=== PATIENT | male | born 1950 | race Caucasian/White ===

== ENCOUNTER 2019-05-28 10:13 | Outpatient (CLI) | payer MEDICARE, BC, SELFPAY ==
--- NOTE | ~2019-05-28 | CT_ITS ---
EXAMINATION: CT chest wo con DATE: 05/28/2019 10:41 INDICATION: Shortness of breath, cough and chronic asbestos exposure. TECHNIQUE: Computed tomography (CT) of the chest was performed without intravenous contrast. The dose -length product was 830.94 mGy-cm. Automated exposure control and iterative reconstruction technique were employed. COMPARISON: CT dated 02/05/2017 FINDINGS: There is extensive right pleural thickening with pleural calcifications, consistent with pr evious asbestos exposure. No significant pleural or pericardial effusion. Heart size normal. No thora cic lymphadenopathy. There is right thoracic volume loss. There are gallstones. Calcified granulomas in the spleen. There is chronic right upper and middle lobe airspace consolidation. No osteolytic or osteoblastic le sions are identified to suggest fracture. There is thoracic spondylosis. IMPRESSION: 1. Extensive right pleural thickening with pleural calcifications, consistent with prior asbestos exp osure. There is chronic right thoracic volume loss. 2: Chronic right upper and middle lobe airspace disease which may represent atelectasis/scarring or l ess likely atypical infection. 3: Cholelithiasis. Reviewed, dictated and finalized at location B. 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 Extensive right pleural thickening with pleural calcifications, consistent w ith prior asbestos exposure. There is chronic right thoracic volume loss. 2: Chronic right upper and middle lobe airspace disease which may represent ate lectasis/scarring or less likely atypical infection. 3: Cholelithiasis.
== END 2019-05-28 10:14 | disposition home or self-care (01) ==
PROVIDERS: PCP Family Medicine; Visit Provider Nurse Practitioner Family
DX: R05 Cough (principal); R06.02 Shortness of breath; K80.20 Calculus of gallbladder without cholecystitis without obstruction; R91.8 Other nonspecific abnormal finding of lung field
CPT/HCPCS: 71250

== ENCOUNTER 2020-04-11 13:41 | Outpatient (CLI) | payer MEDICARE, BC, SELFPAY ==
--- NOTE | 2020-04-11 13:51 | ECHO_ITS ---
Patient Info Name: Hemal Ying Age: 70 years : 1950 Gender: Male Ht: 71 in Wt: 285 lbs BSA: 2.60 m2 HR: 81 bpm BP: 160 / 95 mmHg Technical Quality: Poor Exam Date: 04/11/2020 2:23 PM Exam Location: [facility] Patient Status: Outpatient Admit Date: 04/11/2020 Staff Ordering Physician: Toby Zhong MD Cupola Melter Helper: Samir Carter, MICKICS, RT Attending Provider: Toby Zhong MD Referring Physician: Farheen DOMINGUEZ; Exam Type: CA echo dop color flow w con Study Info Indications I51.7 - Cardiomegaly Complete two-dimensional, color flow and Doppler transthoracic echocardiogram is performed with contrast to opacify the left ventricle and to improve the deliniation of the left ventricle endocardial borders. Contrast/Agitated Saline Contrast/Ag. Saline: Definity Amount: 3.00 ml New IV Access: Antecubital Space and Right Site Condition: No extravasation and IV removed Reason for Poor Study: poor echocardiographic windows Summary 1. Technically suboptimal study due to poor sonographic images. 2. Definity contrast administered improved wall motion interpretation. 3. Left ventricular chamber dimension is normal. 4. Left ventricular systolic function is normal, estimated at 55-60%. 5. The left ventricular diastolic function is grade I diastolic dysfunction. 6. E/e' 9 is minimally elevated. Left Ventricle Technically suboptimal study due to poor sonographic images. E/e' 9 is minimally elevated. Definity contrast administered improved wall motion interpretation. Left ventricular chamber dimension is normal. Left ventricular systolic function is normal, estimated at 55-60%. The left ventricular diastolic function is grade I diastolic dysfunction. Right Ventricle Right ventricular chamber dimension is not well visualized. Left Atria Left atrial chamber dimension is normal. Right Atria Right atrial chamber dimension is not well visualized. Aortic Valve The aortic valve is not well visualized. There is no aortic valve stenosis. There is no aortic valve regurgitation. Pulmonic Valve The pulmonic valve is not well visualized. Mitral Valve There is no mitral valve stenosis. There is no mitral valve regurgitation. Tricuspid Valve The tricuspid valve leaflets are not well visualized. There is no tricuspid valve regurgitation. Pericardium/Pleural There is no pericardial effusion. Inferior Vena Cava Normal inferior vena cava with >50% collapse upon inspiration consistent with normal right atrial pressure, 5 mmHg. Aorta The aortic root size at the sinus of Valsalva is normal. Left Ventricular Outflow Tract Name Value Normal LVOT Doppler LVOT Peak Gradient 4 mmHg LVOT Mean Gradient 2 mmHg LVOT VTI 20.66 cm LVOT VTI/AV VTI Ratio 0.61 Mitral Valve Name Value Normal MV Doppler
== END 2020-04-11 13:42 | disposition home or self-care (01) ==
PROVIDERS: PCP Family Medicine; Visit Provider Family Medicine
DX: G47.33 Obstructive sleep apnea (adult) (pediatric) (principal); I26.09 Other pulmonary embolism with acute cor pulmonale; I51.7 Cardiomegaly
CPT/HCPCS: C8929

== ENCOUNTER 2020-05-24 13:37 | Outpatient (CLI) | payer MEDICARE, BC, SELFPAY ==
--- NOTE | ~2020-05-24 | CT_ITS ---
EXAMINATION: CT diagnostic chest wo con DATE: 05/24/2020 14:06 INDICATION: Z77.090 - Contact with and (suspected) exposure to asbestos TECHNIQUE: Computed tomography (CT) of the chest was performed without intravenous contrast. Addition al 3D reconstructions utilizing coronal maximum intensity projection (MIP) were performed. Automated exposure control and iterative reconstruction technique were employed. The dose-length product was 76 2.39 mGy-cm. COMPARISON: 05/28/2019 FINDINGS: Bilateral calcified pleural plaques with right-sided and lower lung predominance consistent with prov ided history of prior asbestos exposure. Chronic partial collapse of the right middle lobe with assoc iated bronchiectatic changes. No significant interval change in chronic groundglass, reticular and tr ee-in-bud opacities throughout portions of the right upper and to a lesser degree lower lobes. A few small calcified nodules in the right upper lobe along, spleen and liver with calcified right hilar an d mediastinal lymph nodes consistent with old granulomatous disease. No pulmonary edema, pleural effu shelley or pneumothorax. Heart size is normal. No pericardial effusion. Atherosclerotic coronary artery calcifications. 4.4 cm ascending thoracic aortic aneurysm. No pathologically enlarged thoracic lympha denopathy. There are bridging osteophytes extending from the lower cervical through the upper lumbar spine consistent with diffuse idiopathic skeletal hyperostosis (DISH). IMPRESSION: 1. Bilateral calcified pleural plaques, right greater than left consistent with prior asbestos exposu re. 2. Chronic partial collapse of the right middle lobe and relatively stable appearance of chronic reti cular nodular lung disease in the right upper and lower lobes which is likely sequela of chronic infe ction. 3. 4.4 cm fusiform ascending thoracic aortic aneurysm. Reviewed, dictated and finalized at location B. MIXER IMPRESSION: 1. Bilateral calcified pleural plaques, right greater than left consistent with prior asbestos exposure. 2. Chronic partial collapse of the right middle lobe and relatively stable appe arance of chronic reticular nodular lung disease in the right upper and lower l obes which is likely sequela of chronic infection. 3. 4.4 cm fusiform ascending thoracic aortic aneurysm.
== END 2020-05-24 13:38 | disposition home or self-care (01) ==
PROVIDERS: PCP Family Medicine; Visit Provider Nurse Practitioner Family
DX: J44.9 Chronic obstructive pulmonary disease, unspecified (principal); R06.02 Shortness of breath; Z77.090 Contact with and (suspected) exposure to asbestos; I71.4 Abdominal aortic aneurysm, without rupture
CPT/HCPCS: 71250

== ENCOUNTER 2020-05-26 14:25 | Outpatient (CLI) | payer MEDICARE, BC, SELFPAY ==
--- NOTE | 2020-05-27 09:19 | P.PCNPFT_ITS ---
PFT Interpretation This is a pulmonary function test with pre and post-bronchodilator spirometry, plethysmography and diffusing capacity. The test was performed and results interpreted in accordance with the 2019 and 2005 ATS/ERS Task Force guidelines respectively using the Global Lung Function Initiative-2012 reference equations. Patient demonstrated good effort and c ooperation. Reproducibility criteria were met. The quality of the pre bronchodilator spirometry maneuver was Grade A and post bronchodilator spirometry maneuver was Grade A. Findings: Spirometry: There is decreased maximal expiratory airflow at all lung volumes with a concave expiratory flow tracing. The pre bronchodilator FVC is 2.88 L, 65% predicted. The pre bronchodilator FEV1 is 1.75 L, 52% predicted. The FEV1: FVC ratio 61%. The post bronchodilator FVC is 3.06 L, representing a 6% increase. The post bronchodilator FEV1 is 1.89 L, representing 8% increase. Plethysmography: The total lung capacity is 5.15 L, 71% predicted. The functional residual capacity is 2.75 L, 72% predicted. The residual volume is 2.23 L, 90% predicted. Diffusing capacity: The absolute diffusion capacity is 21.3, 79% predicted. The diffusing capacity corrected for alveolar volume is 4.93, 126% predicted. In comparison to the most review is pulmonary function test in our laboratory on 07/03/2016 demonstrates that there is a decrease in post bronchodilator FVC from 3.48 to 3.06. The post bronchodilator FEV1 has decreased from 2.34 to 1.89. The total lung capacity has decreased from 7.01 to 5.15. The functional residual capacity has decreased from 4.50 to 2.75. The residual volume has decreased from 3.78 to 2.23. The absolute diffusion capacity is decreased from 25.6 to 21.3. The diffusing capacity corrected for alveolar volume has decreased from 5.48 to 4.95. Impression: There is a combined obstructive and restrictive ventilatory abnormality. There are no guidelines to assign the severity of obstruction and restriction with a combined abnormality. In my opinion, given the moderately concave expiratory flow tracing with a moderately decreased FEV1:FVC ratio and mild restrictive abnormality I would state there is a moderate obstructive abnormality and a mild restrictive abnormality resulting in a moderately severe decreased FEV1. There is no significant improvement after inhaling a single dose of albuterol. The diffusing capacity is normal. When compared to previous pulmonary function test on 07/03/2016 there is a greater than anticipated time dependent decrease in FVC, FEV1, total lung capacity, functional residual capacity, residual volume and DLCO. Clinical correlation is recommended.
--- NOTE | 2020-05-27 09:31 | WPDSIXMINUTE ---
Six Minute Walk This is a 6 minutes walk test. The test was performed and interpreted in accordance with the 2014 ERS/ATS task force guidelines. Findings: The patient's resting room air oxygen saturation measured by pulse oximetry was 94% and her heart rate was 61 bpm. Patient ambulated for 305 meters and oxygen saturation remained 91 to 95%. Heart rate at the end of the study was 103 bpm. There are no prior studies for comparison.
== END 2020-05-26 14:26 | disposition home or self-care (01) ==
LOC: ANHPFT 14:27
PROVIDERS: PCP Family Medicine; Visit Provider Nurse Practitioner Family
DX: J44.9 Chronic obstructive pulmonary disease, unspecified (principal); Z77.090 Contact with and (suspected) exposure to asbestos; R94.2 Abnormal results of pulmonary function studies
CPT/HCPCS: 94060; 94726; 94729

== ENCOUNTER 2020-12-01 17:06 | Emergency (ER) | payer MEDICARE, BC, SELFPAY ==
--- NOTE | ~2020-12-01 | XR_ITS ---
XR hand RT min 3V, XR wrist RT min 3V 12/01/2020 17:32 Indication: Right wrist and hand pain after blunt trauma Procedure: 3 views right hand 4 views right wrist Comparison: No prior studies for comparison. Findings: No fracture, subluxation or dislocation. Moderate dorsal soft tissue swelling of the hand a nd wrist. Polyarticular osteoarthritis. Impression: 1: No acute fracture. Reviewed, dictated and finalized at location A. Impression: 1: No acute fracture. Impression: 1: No acute fracture.
[2020-12-01 17:14] VITALS: BP 177/79; PULSE 81; RESP 16; TEMP 36.8; O2SAT 97
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
--- NOTE | 2020-12-01 17:33 | PC.NURSE ---
PT DECLINED ICE FOR COMFORT
== END 2020-12-01 17:45 | disposition home or self-care (01) ==
PROVIDERS: Emergency Provider Nurse Practitioner Family; PCP Family Medicine
DX: S60.221A Contusion of right hand, initial encounter (principal); S60.211A Contusion of right wrist, initial encounter; W27.8XXA Contact with other nonpowered hand tool, initial encounter; Z86.73 Personal history of transient ischemic attack (TIA), and cerebral infarction without residual deficits; M06.9 Rheumatoid arthritis, unspecified
CPT/HCPCS: 73110; 73130; 99213; G0463

== ENCOUNTER 2021-08-22 14:50 | Outpatient (CLI) | payer MEDICARE, BC, SELFPAY ==
--- NOTE | 2021-08-22 17:48 | WPDPFTINT ---
PFT Procedure Performed PFT Procedure Performed Spirometry with Pre/Post Bronchodilator Plethysmography (Lung Vol) Diffusing Cap (DLCO) Flow Vol Loop PFT Interpretation This is a pulmonary function test with pre and post-bronchodilator spirometry, plethysmography and diffusing capacity. The test was performed and results interpreted in accordance with the 2019 and 2005 ATS/ERS Task Force guidelines respectively using the Global Lung Function Initiative-2012 reference equations. Patient demonstrated good effort and cooperation. Reproducibility criteria were met. The quality of the pre bronchodilator spirometry maneuver was Grade A and post bronchodilator spirometry maneuver was Grade A. Findings: Spirometry: There is decreased maximal expiratory airflow at low lung volumes with a concave expiratory flow tracing. Contour the inspiratory flow tracing is normal. The pre bronchodilator FVC is 3.28 L, 75% predicted. The pre bronchodilator FEV1 is 2.14 L, 65% predicted. The pre bronchodilator FEV1: FVC ratio is 65%. The post bronchodilator FVC is 3.34 L, representing a 2% increase. The post bronchodilator FEV1 is 2.21 L, representing a 3% increase. The post bronchodilator FEV1: FVC ratio 66%. Plethysmography: The total lung capacity is 7.87 L, 109% predicted. The functional residual capacity is 5.80 L, 151% predicted. The residual volume is 4.36 L, 175% predicted. Diffusing capacity: The diffusing capacity unadjusted for hemoglobin and carboxyhemoglobin is 21.2, 80% predicted. The diffusing capacity adjusted for alveolar volume is 4.42, 114% predicted. Impression: There is a moderate obstructive abnormality without significant improvement after inhaling a single dose of albuterol. The increase in residual volume is consistent with air trapping from an obstructive abnormality. Hyperinflation is present is demonstrated by the increase in functional residual capacity and is consistent with an obstructive abnormality. The diffusing capacity is normal. There are no prior studies for comparison
== END 2021-08-22 14:51 | disposition home or self-care (01) ==
LOC: ANHPFT 15:00
PROVIDERS: PCP Family Medicine; Visit Provider Internal Medicine Critical Care Medicine
DX: J44.9 Chronic obstructive pulmonary disease, unspecified (principal); R94.2 Abnormal results of pulmonary function studies
CPT/HCPCS: 94060; 94726; 94729

== ENCOUNTER 2021-10-24 13:51 | Outpatient (RCR) | payer MEDICARE, BC, SELFPAY ==
[2021-10-24 14:36] VITALS: BP 150/66; PULSE 92; RESP 20; TEMP 36.9; O2SAT 98
[2021-10-24] MEDS: diphenhydrAMINE HCl CAP 25 MG CAPSULE PO (14:40)
[2021-10-24] MEDS: ACETAMINOPHEN 325 MG TABLET 650 MG PO (14:40)
[2021-10-24] MEDS: FAMOTIDINE 20 MG TABLET PO (14:40)
[2021-10-24] MEDS: BEBTELOVIMAB 175 MG/2 ML VIAL IV PUSH (15:03)
[2021-10-24 15:41] VITALS: BP 136/62; PULSE 74; O2SAT 98
== END 2021-10-24 16:00 ==
LOC: AMCINF 13:51
PROVIDERS: PCP Family Medicine; Visit Provider Internal Medicine Hematology & Oncology
DX: U07.1 COVID-19 (principal); I10 Essential (primary) hypertension; I25.10 Atherosclerotic heart disease of native coronary artery without angina pectoris; J44.9 Chronic obstructive pulmonary disease, unspecified; D84.9 Immunodeficiency, unspecified
CPT/HCPCS: A9270; M0222; Q0222

== ENCOUNTER 2021-12-21 09:04 | Emergency (ER) | payer MEDICARE, BC, SELFPAY ==
[2021-12-21 09:10] VITALS: BP 154/79; PULSE 67; RESP 16; TEMP 36.4; O2SAT 98
--- NOTE | 2021-12-21 09:12 | ED.SKABFB ---
HPI - Skin/Abscess/Foreign Bdy General Chief complaint: Skin/Abscess/Foreign Body Stated complaint: right elbow wound from IV Time Seen by Provider: 12/21/21 09:15 Source: patient Mode of arrival: ambulatory Limitations: no limitations History of Present Illness HPI narrative: 71-year-old male presented for complaint of wound to the right medial elbow worsening over the last 10 days, stating this is the site where IV contrast infiltrated during a CT scan at [facility] on 12/11. CT needed to check liver. States the staff removed the IV site after infiltration and applied warm compress. Endorses a blister appeared on the skin when returned home, blister popped and they have applied vaseline and polysporin, and peroxide. States it is red, warm, tender, pain 6/10, worse when it is 'dry.' Denies fatigue, n/v/d/f/c. Hx RA, HTN, copd/asbestosis, PE Related Data Home Medications Medication Instructions Recorded Confirmed coQ10 (ubiquinol) 200 mg capsule 200 mg PO BID 03/30/19 10/24/21 triamcinolone acetonide 0.1 % 0.1 % topical DAILY PRN Rash 03/30/19 10/24/21 topical ointment aspirin 81 mg tablet,delayed 81 mg PO DAILY 06/01/20 10/24/21 release (Adult Aspirin Regimen) methotrexate sodium 2.5 mg tablet 20 mg PO WEEKLY 03/19/21 10/24/21 pitavastatin calcium 4 mg tablet 4 mg PO HS 03/19/21 10/24/21 (Livalo) Allergies Allergy/AdvReac Type Severity Reaction Status Date / Time codeine Allergy Unknown head aches. Verified 12/21/21 09:17 fluoxetine Allergy Unknown Dizziness. Verified 12/21/21 09:17 Review of Systems Review of Systems: CONSTITUTIONAL: Denies body aches, fever, chills, or sweats. EYES: Denies visual changes, redness, or discharge. ENT: Denies rhinorrhea, congestion CARDIOVASCULAR: Denies chest pain, palpitations, or edema. RESPIRATORY: Denies cough or dyspnea. GASTROINTESTINAL: Denies abdominal pain, nausea, vomiting, or diarrhea. SKIN: reports wound and redness right AC MUSCULOSKELETAL: Denies back pain, joint pain, or myalgia. NEUROLOGIC: Denies headache, numbness, tingling, or weakness. [facility] Past Medical History Medical History Dyspnea and respiratory abnormalities History of stroke Prurigo nodularis Rheumatoid arthritis Thoracic aortic aneurysm 4.4 cm ascending Surgical History Surgical History History of carpal tunnel release of both wrists History of tonsillectomy Family History Family History Father Hypertension Family history of cardiovascular disease Family history of chronic obstructive pulmonary disease Family history of congestive heart failure Family history of elevated blood lipids Acute myocardial infarction Family history of kidney disease Sibling Family history of cardiovascular disease Mother Family history of glaucoma Hypertension Family history of cardiovascular disease Cerebrovascular accident Other Diabetes mellitus No family history of cardiovascular disease Social History Social History Smoking status: Never smoker Second hand tobacco smoke exposure: No Alcohol intake: current Drinks per week: 2 Substance use type: other Other substance usage details: CBD oil 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 Gender identity (if verbalized by the patient): Male Spiritual care concerns: No Agree to blood products: Yes Comments At time of signature, I have reviewed and agree with nursing past medical, surgical, social and family history unless otherwise noted. Please see nursing chart for further information. There is no relevant family history pertinent to the presenting complaint Exam Narrative: GENERAL: Well-appearing EYES: conjunctivae clear, and EOMI. ENT: Mucous membranes moist. Oropharynx withou
== END 2021-12-21 09:55 | disposition short-term general hospital (02) ==
LOC: EXPBETH 09:08
PROVIDERS: Emergency Provider Nurse Practitioner Family; PCP Family Medicine
DX: T80.29XA Infection following other infusion, transfusion and therapeutic injection, initial encounter (principal); L03.113 Cellulitis of right upper limb; Y84.8 Other medical procedures as the cause of abnormal reaction of the patient, or of later complication, without mention of misadventure at the time of the procedure; Z86.73 Personal history of transient ischemic attack (TIA), and cerebral infarction without residual deficits; M06.9 Rheumatoid arthritis, unspecified
CPT/HCPCS: 99212; G0463

== ENCOUNTER 2021-12-21 10:47 | Emergency (ER) | payer MEDICARE, BC, SELFPAY ==
[2021-12-21 10:58] VITALS: BP 174/85; PULSE 89; RESP 16; TEMP 36.5; O2SAT 99
--- NOTE | 2021-12-21 11:15 | ED.EXTPRO ---
HPI - Extremity Problem General Chief complaint: Extremity Problem,Nontraumatic Stated complaint: sore on left arm Time Seen by Provider: 12/21/21 10:56 Source: patient and family Mode of arrival: ambulatory Limitations: no limitations History of Present Illness HPI Narrative: 71 years old white male referred to our emergency room from urgent care because of pain, swelling, superficial ulceration of the right antecubital area after IV contrast at that area 10 days ago. Patient did not see any doctor since, he denies any fever, chills, nausea, vomiting, chest pain, shortness of breath. Patient reports that the symptoms started immediately 10 days ago and gradually is getting worse. Patient is not diabetic, history of asthma, asbestosis, CVA, pulmonary embolism, currently on Xarelto and aspirin Related Data Home Medications Medication Instructions Recorded Confirmed coQ10 (ubiquinol) 200 mg capsule 200 mg PO BID 03/30/19 12/21/21 triamcinolone acetonide 0.1 % 0.1 % topical DAILY PRN Rash 03/30/19 12/21/21 topical ointment aspirin 81 mg tablet,delayed 81 mg PO DAILY 06/01/20 12/21/21 release (Adult Aspirin Regimen) methotrexate sodium 2.5 mg tablet 20 mg PO WEEKLY 03/19/21 12/21/21 pitavastatin calcium 4 mg tablet 4 mg PO HS 03/19/21 12/21/21 (Livalo) Allergies Allergy/AdvReac Type Severity Reaction Status Date / Time codeine Allergy Unknown head aches. Verified 12/21/21 09:17 fluoxetine Allergy Unknown Dizziness. Verified 12/21/21 09:17 [facility] Past Medical History Medical History Dyspnea and respiratory abnormalities History of stroke Prurigo nodularis Rheumatoid arthritis Thoracic aortic aneurysm 4.4 cm ascending Surgical History Surgical History History of carpal tunnel release of both wrists History of tonsillectomy Family History Family History Father Hypertension Family history of cardiovascular disease Family history of chronic obstructive pulmonary disease Family history of congestive heart failure Family history of elevated blood lipids Acute myocardial infarction Family history of kidney disease Sibling Family history of cardiovascular disease Mother Family history of glaucoma Hypertension Family history of cardiovascular disease Cerebrovascular accident Other Diabetes mellitus No family history of cardiovascular disease Social History Social History Smoking status: Never smoker Second hand tobacco smoke exposure: No Alcohol intake: current Drinks per week: 2 Substance use type: other Other substance usage details: CBD oil 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 Bui Transfer patient TO [facility] Date: 12/21/21 Time: 12:49 Consultation #2: DR SCHNEIDER, plastic surgeon at [facility] Recommends topical sulfadiazine cream, call office at [phone] to speak to Viviana Rajan for follow-up Date: 12/21/21 Time: 15:04 Vital Signs Vital signs: Vital Signs Temperature 36.5 C 12/21/21 10:58 Pulse Rate 89 12/21/21 10:58 Respiratory Rate 16 12/21/21 10:58 Blood Pressure 174/85 H 12/21/21 10:58 Pulse Oximetry 99 12/21/21 10:58 Oxygen Delivery Room Air 12/21/21 10:58 Temperature 36.5 C 12/21/21 10:58 Pulse Rate 89 12/21/21 10:58 Respiratory Rate 16 12/21/21 10:58 Blood Pressure 174/85 H 12/21/21 10:58 Pulse Oximetry 99 12/21/21 10:58 Oxygen Delivery Room Air 12/21/21 10:58 MDM - Extremity (Nontraumatic) Lab Data Result diagrams: 12/21/21 11:55 12/21/21 11:55 Labs: Lab Res
[2021-12-21 12:01] LABS: Basophils Percent Auto 0.4 % (0.2-1.2); Eosinophils Absolute Auto 0.1 K/mm3 (0-0.3); Eosinophils Percent Auto 0.8 % (0-4.4); Hematocrit 40.6 % (42.0-52.0); Hemoglobin 13.1 g/dL (14.0-18.0); Immature Granulocyte Absolute 0.05 K/mm3 (0.00-0.031); Immature Granulocyte Percent A 0.6 % (0-0.5); Immature Platelet Fraction Pct 3.7 % (0.9-11.2); Lymphocytes Absolute Auto 1.41 K/mm3 (0.9-3.2); Lymphocytes Percent Auto 15.7 % (18.3-44.2); Mean Corpuscular HGB Conc 32.3 g/dl (32-36); Mean Corpuscular Hemoglobin 30.3 pg (26-34); Mean Corpuscular Volume 93.8 fl (80-100); Mean Platelet Volume 8.7 fl (7.4-10.4); Monocytes Absolute Auto 0.5 K/mm3 (0.1-0.6); Monocytes Percent Auto 5.3 % (2.6-8.5); Neutrophils Absolute Auto 6.9 K/mm3 (1.3-6.7); Neutrophils Percent Auto 77.2 % (45.5-73.1); Nucleated Red Blood Cells Perc 0.2 % (0.0-0.2); Platelet Count Result 169 k/mm3 (150-375); Red Blood Count 4.33 M/mm3 (4.6-6.20); Red Cell Distribution Width 16.5 % (11.5-14.5)
[2021-12-21 12:09] LABS: Alanine Aminotransferase 39 U/L (6-50); Albumin Level 3.9 g/dL (3.5-5.1); Alkaline Phosphatase 59 U/L (38-126); Anion Gap 10 mmol/L (8-16); Aspartate Amino Transferase 95 U/L (17-59); Bilirubin,Total 0.6 mg/dL (0.2-1.3); Blood Urea Nitrogen 19 mg/dL (9-20); Calcium 8.5 mg/dL (8.4-10.2); Carbon Dioxide 24 mmol/L (22-30); Chloride 106 mmol/L (98-107); Estimated CRCL calculation 91 ml/min; Estimated Glomerular Filt Rate > 60; Glucose 136 mg/dL (65-110); Potassium 4.3 mmol/L (3.4-5.0); Sodium 140 mmol/L (137-145)
[2021-12-21 15:24] VITALS: BP 164/87; PULSE 79; RESP 16; O2SAT 97
== END 2021-12-21 15:25 | disposition home or self-care (01) ==
PROVIDERS: Emergency Provider Emergency Medicine; PCP Family Medicine
DX: T80.89XA Other complications following infusion, transfusion and therapeutic injection, initial encounter (principal); L98.9 Disorder of the skin and subcutaneous tissue, unspecified; Y84.8 Other medical procedures as the cause of abnormal reaction of the patient, or of later complication, without mention of misadventure at the time of the procedure; M06.9 Rheumatoid arthritis, unspecified; I71.2 Thoracic aortic aneurysm, without rupture; Z86.73 Personal history of transient ischemic attack (TIA), and cerebral infarction without residual deficits; Z79.82 Long term (current) use of aspirin; Z79.01 Long term (current) use of anticoagulants
CPT/HCPCS: 36415; 80053; 85025; 85055; 99283

== ENCOUNTER 2022-02-26 17:33 | Outpatient (CLI) | payer MEDICARE, BC, SELFPAY ==
--- NOTE | ~2022-02-26 | XR_ITS ---
XR chest 2V DATE: 02/26/2022 18:02 INDICATION: Cough. History of asthma, COPD TECHNIQUE: PA and lateral views COMPARISON: 03/20/2018 two-view chest 06/20/2020 CT chest FINDINGS: There is chronic right lung volume loss including prominent middle lobe atelectasis, obscur ing much of the right cardiac margin. There is right pleural thickening and prominent right pleural c alcification, particularly along the diaphragm. Normal heart size. There is aortic calcification and mild unfolding. The left lung is clear. No left pleural effusion is evident. No pulmonary vascular congestion or pleural effusion or pneumothorax is detected. IMPRESSION: Chronic right lung volume loss, involving particularly the middle lobe Chronic pleural thickening and calcification Aortic atherosclerosis Reviewed, dictated and finalized at location B. ING PROGRAM MANAGER IMPRESSION: Chronic right lung volume loss, involving particularly the middle l obe Chronic pleural thickening and calcification Aortic atherosclerosis
== END 2022-02-26 17:34 | disposition home or self-care (01) ==
PROVIDERS: PCP Family Medicine; Visit Provider Physician Assistant
DX: R05.9 Cough, unspecified (principal); J92.9 Pleural plaque without asbestos; I70.0 Atherosclerosis of aorta
CPT/HCPCS: 71046

== ENCOUNTER 2022-05-15 02:20 | Day surgery (SDC) | payer MEDICARE, BC, SELFPAY ==
[2022-05-07 14:10] VITALS: BMI 39.8
--- NOTE | 2022-05-08 09:07 | PC.NURSE ---
Dr. Roger made aware that Dr. Zhong cleared pt to only hold Xarelto for 24 hours prior to colonoscopy, Dr. Roger okayed pt to remain on Xarelto and not hold at all for procedure. Pt called and notified not to hold XARELTO.
[2022-05-15 11:30] VITALS: BP 160/87; PULSE 95; RESP 18; TEMP 36.2; O2SAT 97; BMI 39.5
[2022-05-15] MEDS: LACTATED RINGERS 1,000 ML 150 ML IV CONT (11:53)
--- NOTE | 2022-05-15 12:09 | WPDANESEPPF ---
Anes - Initial Pre Proc Eval Procedure: Operation Date: 05/15/22 13:00 Proposed Procedures p Colonoscopy - Victoriano Gordon MD Date/Time: 05/15/22 12:09 Surgeon: Victoriano Gordon MD Pre Op Diagnosis: other fecal abnormalities Patient Data Age: 72 Gender: M Height: 1.8 m Weight: 128.6 kg Last Vital Signs Temp 97.2 F L 05/15/22 11:30 Pulse 95 05/15/22 11:30 Resp 18 05/15/22 11:30 BP 160/87 H 05/15/22 11:30 Pulse Ox 97 05/15/22 11:30 O2 Del Method Room Air 05/15/22 11:30 Allergies Allergy/AdvReac Type Severity Reaction Status Date / Time codeine Allergy Intermediate head aches. Verified 05/15/22 11:37 fluoxetine Allergy Intermediate Dizziness. Verified 05/15/22 11:37 Home Medications Medication Instructions Recorded Confirmed Type coQ10 (ubiquinol) 200 mg capsule 200 mg PO BID 03/30/19 05/15/22 History folic acid 1 mg tablet 1 mg PO DAILY #90 tabs 10/15/19 05/15/22 Rx aspirin 81 mg tablet,delayed 81 mg PO DAILY 06/01/20 05/15/22 History release (Adult Aspirin Regimen) diazepam 5 mg tablet 5 mg PO Q8H PRN muscle spasm #30 01/09/21 05/15/22 Rx tabs methotrexate sodium 2.5 mg tablet 20 mg PO WEEKLY 03/19/21 05/15/22 History rivaroxaban 20 mg tablet (Xarelto) See Rx Instructions .Route 09/25/21 05/15/22 Rx .COMPLEX #90 tabs montelukast 10 mg tablet 10 mg PO DAILY #30 tabs 11/07/21 05/15/22 Rx pitavastatin calcium 4 mg tablet See Rx Instructions .Route 12/25/21 05/15/22 Rx (Livalo) .COMPLEX #90 tabs fluticasone fur. 100 mcg-umeclid 1 inh inhalation DAILY 1 month #60 02/13/22 05/15/22 Rx 62.5 mcg-vilant 25 mcg ea inhalat.powder (Trelegy Ellipta) albuterol 90 mcg/actuation aerosol 90 mcg inhalation Q4H PRN 02/22/22 05/15/22 History inhaler Shortness Of Breath Or Wheezing benzonatate 200 mg capsule 200 mg PO TID PRN cough #30 caps 02/27/22 05/15/22 Rx tadalafil 5 mg tablet (Cialis) 5 mg PO DAILY #90 tabs 04/01/22 05/15/22 Rx diclofenac sodium 1 % topical gel 1 g topical QID PRN Pain 05/07/22 05/15/22 History (Arthritis Pain (diclofenac)) ezetimibe 10 mg tablet 10 mg PO DAILY 05/07/22 05/15/22 History triamcinolone acetonide 0.1 % 1 applic topical QID PRN Rash 05/07/22 05/15/22 History topical cream Patient hx anesthesia problems: none Family hx anesthesia problems: none Results Review: All pre-operative results and documents have been reviewed as part of the pre-operative evaluation. FORMERLY [facility] Past Medical History Medical History Dyspnea and respiratory abnormalities History of stroke Prurigo nodularis Rheumatoid arthritis Thoracic aortic aneurysm 4.4 cm ascending Surgical History Surgical History History of carpal tunnel release of both wrists History of tonsillectomy Family History Family History Father Hypertension Family history of cardiovascular disease Family history of chronic obstructive pulmonary disease Family history of congestive heart failure Family history of elevated blood lipids Acute myocardial infarction Family history of kidney disease Sibling Family history of cardiovascular disease Mother Family history of glaucoma Hypertension Family history of cardiovascular disease Cerebrovascular accident Other Diabetes mellitus No family history of cardiovascular disease Social History Social History Smoking status: Never smoker Second hand tobacco smoke exposure: No Alcohol intake: current Drinks per week: 2 Substance use: never Substance use type: does not use Other substance usage details: CBD oil Lack of Transportation: No Lack of Food: Never True Current Housing: I Have Housing Concerned About Future Housing: No Difficulty Paying Gas/Electric
--- NOTE | 2022-05-15 12:24 | PM.HPGS ---
History of Present Illness History of Present Illness Consent: Risks, benefits, and alternatives have been discussed and questions answered. Patient agrees to proceed with procedure. Chief complaint: other fecal abnormalities Narrative: Hemal Ying is a 72 year old male with last colonoscopy over 10 years ago, had positive cologuard Review of Systems Constitutional: Constitutional: Denies headache(s) and Denies weakness Eyes: Eyes: Denies blurry vision ENT: Reports Normal hearing present, Denies headache(s) and Denies neck pain Cardiovascular: Cardiovascular: Denies chest pain and Denies dyspnea Respiratory: Respiratory: Denies dyspnea Gastrointestinal: Gastrointestinal: Reports no additional gastrointestinal complaints Genitourinary: Genitourinary: Denies dysuria Musculoskeletal: Musculoskeletal: Denies neck pain Integumentary/Breasts: Skin/Breast: Denies dry skin Neurologic: Reports Normal hearing present, Denies headache(s) and Denies weakness Psychiatric: Psychiatric: Denies anxiety Endocrine: Endocrine: Denies change in body appearance Hematologic/Lymphatic: Hematologic/Lymphatic: Denies easy bleeding Allergic/Immunologic: Allergic/Immunologic: Denies urticaria PMFSH Past Medical History Medical History (Updated 05/15/22 @ 12:25 by Victoriano Gordon MD) Dyspnea and respiratory abnormalities History of stroke Positive colorectal cancer screening using Cologuard test Prurigo nodularis Rheumatoid arthritis Thoracic aortic aneurysm 4.4 cm ascending Surgical History Surgical History History of carpal tunnel release of both wrists History of tonsillectomy Family History Family History Father Hypertension Family history of cardiovascular disease Family history of chronic obstructive pulmonary disease Family history of congestive heart failure Family history of elevated blood lipids Acute myocardial infarction Family history of kidney disease Sibling Family history of cardiovascular disease Mother Family history of glaucoma Hypertension Family history of cardiovascular disease Cerebrovascular accident Other Diabetes mellitus No family history of cardiovascular disease Social History Social History Smoking status: Never smoker Second hand tobacco smoke exposure: No Alcohol intake: current Drinks per week: 2 Substance use: never Substance use type: does not use Other substance usage details: CBD oil Lack of Transportation: No Lack of Food: Never True Current Housing: I Have Housing Concerned About Future Housing: No Difficulty Paying Gas/Electric Bills: No Difficulty Paying for Meds: No Currently Unemployed: No Education: Bachelor's Degree Difficulty w/ Childcare or Family Care: No Living arrangements: with family Occupation/Education: occupation 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 Gender identity (if verbalized by the patient): Male Spiritual care concerns: No Agree to blood products: Yes Meds Home Medications and Allergies Home Medications Medication Instructions Recorded Confirmed Type coQ10 (ubiquinol) 200 mg capsule 200 mg PO BID 03/30/19 05/15/22 History folic acid 1 mg tablet 1 mg PO DAILY #90 tabs 10/15/19 05/15/22 Rx aspirin 81 mg tablet,delayed 81 mg PO DAILY 06/01/20 05/15/22 History release (Adult Aspirin Regimen) diazepam 5 mg tablet 5 mg PO Q8H PRN muscle spasm #30 01/09/21 05/15/22 Rx tabs methotrexate sodium 2.5 mg tablet 20 mg PO WEEKLY 03/19/21 05/15/22 History rivaroxaban 20 mg tablet (Xarelto) See Rx Instructions .Route 09/25/21 05/15/22 Rx .COMPLEX #90 tabs montelukast 10 mg tablet 10 mg PO DAILY #30 tabs 11/07/21 05/15/22 Rx pitavastatin calcium 4 mg tablet See Rx Instructions .Route 12/25/21
[2022-05-15 12:53] VITALS: BP 130/77; PULSE 88; RESP 19; O2SAT 97
[2022-05-15 13:03] VITALS: BP 130/77; PULSE 88; RESP 19; O2SAT 97
[2022-05-15 13:13] VITALS: BP 119/85; PULSE 87; RESP 19; O2SAT 97
== END 2022-05-15 13:20 | disposition home or self-care (01) ==
PROVIDERS: PCP Family Medicine; Visit Provider Internal Medicine Gastroenterology
PROC: 0DJD8ZZ Inspection of Lower Intestinal Tract, Via Natural or Artificial Opening Endoscopic (ICD-10-PCS; CPT 45378; principal; 2022-05-15 13:00)
DX: R19.5 Other fecal abnormalities (principal); D12.2 Benign neoplasm of ascending colon; D12.8 Benign neoplasm of rectum; K57.30 Diverticulosis of large intestine without perforation or abscess without bleeding; M06.9 Rheumatoid arthritis, unspecified; I71.21 Aneurysm of the ascending aorta, without rupture; Z79.01 Long term (current) use of anticoagulants; Z79.82 Long term (current) use of aspirin; Z79.51 Long term (current) use of inhaled steroids; Z86.73 Personal history of transient ischemic attack (TIA), and cerebral infarction without residual deficits; E66.01 Morbid (severe) obesity due to excess calories; Z68.39 Body mass index [BMI] 39.0-39.9, adult
CPT/HCPCS: 45385; 45381; 88305; J2704; J7120

== ENCOUNTER 2022-08-01 08:14 | Outpatient (CLI) | payer MEDICARE, BC, SELFPAY ==
[2022-08-01 19:10] LABS: Basophils Percent Auto 0.8 % (0.2-1.2); Eosinophils Absolute Auto 0.4 K/mm3 (0-0.3); Eosinophils Percent Auto 8.1 % (0-4.4); Hematocrit 43.6 % (42.0-52.0); Hemoglobin 13.8 g/dL (14.0-18.0); Immature Granulocyte Absolute 0.02 K/mm3 (0.00-0.031); Immature Granulocyte Percent A 0.4 % (0-0.5); Lymphocytes Absolute Auto 1.51 K/mm3 (0.9-3.2); Mean Corpuscular HGB Conc 31.7 g/dl (32-36); Mean Corpuscular Hemoglobin 28.9 pg (26-34); Mean Corpuscular Volume 91.4 fl (80-100); Mean Platelet Volume 8.7 fl (7.4-10.4); Monocytes Absolute Auto 0.5 K/mm3 (0.1-0.6); Monocytes Percent Auto 10.4 % (2.6-8.5); Neutrophils Absolute Auto 2.7 K/mm3 (1.3-6.7); Neutrophils Percent Auto 51.3 % (45.5-73.1); Platelet Count Result 229 k/mm3 (150-375); Red Blood Count 4.77 M/mm3 (4.6-6.20); Red Cell Distribution Width 17.2 % (11.5-14.5); White Blood Count 5.2 K/mm3 (4.5-10.0)
[2022-08-01 19:30] LABS: Alanine Aminotransferase 33 U/L (6-50); Albumin Level 3.8 g/dL (3.5-5.1); Alkaline Phosphatase 88 U/L (38-126); Anion Gap 4 mmol/L (8-16); Aspartate Amino Transferase 99 U/L (17-59); Bilirubin,Total 0.7 mg/dL (0.2-1.3); Blood Urea Nitrogen 16 mg/dL (9-20); CRP 0.9 mg/dL (<1.0); Calcium 8.2 mg/dL (8.4-10.2); Carbon Dioxide 29 mmol/L (22-30); Chloride 104 mmol/L (98-107); Estimated Glomerular Filt Rate > 60; Glucose 78 mg/dL (65-110); Potassium 4.5 mmol/L (3.4-5.0); Sodium 137 mmol/L (137-145)
[2022-08-01 19:45] LABS: Erythrocyte Sedimentation Rate 13 mm/hr (0-20)
== END 2022-08-01 08:15 | disposition home or self-care (01) ==
LOC: ANHGOSHLAB 08:20
PROVIDERS: PCP Family Medicine; Visit Provider Internal Medicine Rheumatology
DX: Z51.81 Encounter for therapeutic drug level monitoring (principal); Z79.60 Long term (current) use of unspecified immunomodulators and immunosuppressants
CPT/HCPCS: 36415; 80053; 85025; 85652; 86140

== ENCOUNTER 2022-12-04 10:37 | Outpatient (CLI) | payer MEDICARE, BC, SELFPAY ==
[2022-12-04 19:00] LABS: Basophils Percent Auto 0.5 % (0.2-1.2); Eosinophils Absolute Auto 0.3 K/mm3 (0-0.3); Eosinophils Percent Auto 4.2 % (0-4.4); Hemoglobin 14.3 g/dL (14.0-18.0); Immature Granulocyte Absolute 0.02 K/mm3 (0.00-0.031); Immature Granulocyte Percent A 0.3 % (0-0.5); Mean Corpuscular HGB Conc 31.8 g/dl (32-36); Mean Corpuscular Volume 94.5 fl (80-100); Mean Platelet Volume 9.9 fl (7.4-10.4); Monocytes Absolute Auto 0.4 K/mm3 (0.1-0.6); Monocytes Percent Auto 5.9 % (2.6-8.5); Neutrophils Percent Auto 67.1 % (45.5-73.1); Platelet Count Result 171 k/mm3 (150-375); Red Blood Count 4.76 M/mm3 (4.6-6.20); White Blood Count 5.9 K/mm3 (4.5-10.0)
[2022-12-04 19:35] LABS: Erythrocyte Sedimentation Rate 6 mm/hr (0-20)
[2022-12-04 20:54] LABS: Alanine Aminotransferase 40 U/L (6-50); Albumin Level 3.8 g/dL (3.5-5.1); Alkaline Phosphatase 61 U/L (38-126); Anion Gap 6 mmol/L (8-16); Aspartate Amino Transferase 97 U/L (17-59); Bilirubin,Total 0.9 mg/dL (0.2-1.3); Blood Urea Nitrogen 25 mg/dL (9-20); CRP 0.7 mg/dL (<1.0); Calcium 8.2 mg/dL (8.4-10.2); Carbon Dioxide 27 mmol/L (22-30); Chloride 106 mmol/L (98-107); Estimated Glomerular Filt Rate > 60; Glucose 100 mg/dL (65-110); Potassium 4.8 mmol/L (3.4-5.0); Sodium 139 mmol/L (137-145)
== END 2022-12-04 10:38 | disposition home or self-care (01) ==
PROVIDERS: PCP Family Medicine; Visit Provider Internal Medicine Rheumatology
DX: Z51.81 Encounter for therapeutic drug level monitoring (principal); Z79.60 Long term (current) use of unspecified immunomodulators and immunosuppressants
CPT/HCPCS: 36415; 80053; 85025; 85652; 86140

== ENCOUNTER 2023-04-01 15:10 | Outpatient (CLI) | payer MEDICARE, BC, SELFPAY ==
[2023-04-01 20:20] LABS: Basophils Absolute Auto 0.1 K/mm3 (0.0-0.1); Basophils Percent Auto 0.8 % (0.2-1.2); Eosinophils Absolute Auto 0.2 K/mm3 (0-0.3); Eosinophils Percent Auto 3.4 % (0-4.4); Hematocrit 48.4 % (42.0-52.0); Hemoglobin 15.1 g/dL (14.0-18.0); Immature Granulocyte Absolute 0.02 K/mm3 (0.00-0.031); Immature Granulocyte Percent A 0.3 % (0-0.5); Lymphocytes Absolute Auto 1.59 K/mm3 (0.9-3.2); Mean Corpuscular HGB Conc 31.2 g/dl (32-36); Mean Corpuscular Hemoglobin 29.2 pg (26-34); Mean Corpuscular Volume 93.4 fl (80-100); Mean Platelet Volume 9.6 fl (7.4-10.4); Monocytes Absolute Auto 0.9 K/mm3 (0.1-0.6); Monocytes Percent Auto 13.9 % (2.6-8.5); Neutrophils Absolute Auto 3.4 K/mm3 (1.3-6.7); Neutrophils Percent Auto 55.6 % (45.5-73.1); Platelet Count Result 206 k/mm3 (150-375); Red Blood Count 5.18 M/mm3 (4.6-6.20); Red Cell Distribution Width 15.9 % (11.5-14.5); White Blood Count 6.1 K/mm3 (4.5-10.0)
[2023-04-01 21:01] LABS: Hemoglobin A1C 5.7 % (<5.7)
[2023-04-02 18:51] LABS: Alanine Aminotransferase 32 U/L (6-50); Alkaline Phosphatase 83 U/L (38-126); Anion Gap 8 mmol/L (8-16); Aspartate Amino Transferase 98 U/L (17-59); Bilirubin,Total 0.7 mg/dL (0.2-1.3); Blood Urea Nitrogen 15 mg/dL (9-20); Carbon Dioxide 25 mmol/L (22-30); Chloride 104 mmol/L (98-107); Cholesterol 113 mg/dL (0-200); Estimated Glomerular Filt Rate > 60; Glucose 64 mg/dL (65-110); HDL Direct 40 mg/dL; Potassium 4.6 mmol/L (3.4-5.0); Sodium 137 mmol/L (137-145); Triglycerides 104 mg/dL (<150)
[2023-04-02 19:02] LABS: LDL Cholesterol Direct 55 mg/dL
[2023-04-02 19:20] LABS: Prostate Specific Antigen 0.6 ng/mL (< OR = 4.0)
== END 2023-04-01 15:11 | disposition home or self-care (01) ==
LOC: ANHGOSHLAB 15:15
PROVIDERS: PCP Family Medicine; Visit Provider Nurse Practitioner Family
DX: Z12.5 Encounter for screening for malignant neoplasm of prostate (principal); E78.2 Mixed hyperlipidemia; R73.01 Impaired fasting glucose; Z79.899 Other long term (current) drug therapy
CPT/HCPCS: 36415; 80053; 80061; 83036; 84153; 84443; 85025; G0103

== ENCOUNTER 2023-04-24 10:12 | Outpatient (CLI) | payer MEDICARE, BC, SELFPAY ==
[2023-04-24 13:34] LABS: Alanine Aminotransferase 25 U/L (6-50); Albumin Level 3.6 g/dL (3.5-5.1); Alkaline Phosphatase 88 U/L (38-126); Anion Gap 6 mmol/L (8-16); Aspartate Amino Transferase 87 U/L (17-59); Bilirubin,Total 0.5 mg/dL (0.2-1.3); Blood Urea Nitrogen 17 mg/dL (9-20); Calcium 8.6 mg/dL (8.4-10.2); Carbon Dioxide 28 mmol/L (22-30); Chloride 105 mmol/L (98-107); Estimated Glomerular Filt Rate > 60; Glucose 120 mg/dL (65-110); Sodium 139 mmol/L (137-145)
== END 2023-04-24 10:13 | disposition home or self-care (01) ==
PROVIDERS: PCP Family Medicine
DX: R79.89 Other specified abnormal findings of blood chemistry (principal)
CPT/HCPCS: 36415; 80053

== ENCOUNTER 2023-05-13 13:17 | Emergency (ER) | payer MEDICARE, BC, SELFPAY ==
[2023-05-13] VITALS (18 sets, daily range): BP systolic 127–140; BP diastolic 75–80; PULSE 82–121; RESP 12–24; TEMP 36.8; O2SAT 95–100
--- NOTE | ~2023-05-13 | XR_ITS ---
EXAMINATION: XR chest 2V DATE: 05/13/2023 17:10 INDICATION: Weakness. TECHNIQUE: Frontal and lateral views of the chest were obtained. COMPARISON: Chest 2 views 02/26/22, chest CT 05/24/2020 FINDINGS: There is chronic volume loss of right hemithorax. There are calcified pleural plaques on th e right. There are mild airspace opacities in right middle lobe and upper lobe. No pleural effusion o r pneumothorax. The heart size is normal. IMPRESSION: 1. Chronic airspace opacities in right middle lobe and right upper lobe, likely chronic lung disease. 2. Right-sided fibrothorax. Reviewed, dictated and finalized at location E. LE AND SIDE WIRE STITCHER
--- NOTE | ~2023-05-13 | CT_ITS ---
EXAMINATION: CT abdomen pelvis w con DATE: 05/13/2023 20:50 INDICATION: Nausea and vomiting. Weakness. TECHNIQUE: Computed tomography (CT) of the abdomen and pelvis was performed with 100 mL Omnipaque 350 intravenous contrast. Automated exposure control and iterative reconstruction technique were employe d. The dose-length product was 1448.49 mGy-cm. COMPARISON: CT abdomen and pelvis 12/31/2013 FINDINGS: The visualized portions of the lung bases demonstrate volume loss of the right hemithorax. There are calcified pleural plaques bilaterally, right worse than left, which may be seen with asbest osis exposure. There is peripheral septal thickening in the lower lobes and right middle lobe, consis tent with asbestosis. The heart size is normal. There are coronary artery calcifications. No pericard ial effusion. The liver is normal. Calcifications in the spleen are consistent with old granulomatous disease. The gallbladder is distended and contains gallstones. The pancreas and adrenal glands are n ormal. There is cortical thinning of the kidneys. There is diverticulosis of the colon without eviden ce of diverticulitis. There are no dilated loops of bowel. The appendix is normal. Aortic atheroscler osis is noted. There are no pathologically enlarged lymph nodes. There is no free intraperitoneal flu id. There are bridging endplate osteophytes at multiple levels in the spine, consistent with diffuse idiopathic skeletal hyperostosis (DISH). There is moderate lumbar spondylosis. IMPRESSION: 1. Cholelithiasis. Gallbladder distention may be secondary to fasting or acute cholecystitis. Correla te with physical exam. Reviewed, dictated and finalized at location E. LITY SALES AND ADMIN IMPRESSION: 1. Cholelithiasis. Gallbladder distention may be secondary to fasting or acute cholecystitis. Correlate with physical exam.
--- NOTE | ~2023-05-13 | CT_ITS ---
EXAMINATION: CT brain wo con DATE: 05/13/2023 17:02 INDICATION: Altered mental status. TECHNIQUE: Computed tomography (CT) of the head was performed without intravenous contrast. The mA wa s adjusted according to patient size. Iterative reconstruction technique was employed. The dose-lengt h product was 681.00 mGy-cm. COMPARISON: None. FINDINGS: There are old infarcts in the left frontoparietal region and left parietal occipital region . There are scattered areas of low attenuation in the cerebral white matter. There is no intracranial hemorrhage, acute infarction, or abnormal intracranial mass lesion. The ventricles are normal in siz e. The paranasal sinuses are clear. The mastoid air cells are normal. There are likely changes of ocu lar lens replacement surgeries. IMPRESSION: 1. Old infarcts in the left frontoparietal region and left parietal occipital region. 2. Moderate nonspecific cerebral white matter disease, which likely represents chronic small vessel i schemic disease. Reviewed, dictated and finalized at location E. RVISOR POST WAVE IMPRESSION: 1. Old infarcts in the left frontoparietal region and left parietal occipital r egion. 2. Moderate nonspecific cerebral white matter disease, which likely represents chronic small vessel ischemic disease.
--- NOTE | 2023-05-13 13:56 | ECG_ITS ---
Measurements Intervals [place] Rate: 120 P: [place]: 0 QRS: -56 QRSD: 109 T: 69 QT: 306 QTc: 432 Interpretive Statements SINUS TACHYCARDIA MARKED LEFT AXIS DEVIATION NONSPECIFIC ST & T-WAVE ABNORMALITY NO PREVIOUS ECG AVAILABLE FOR COMPARISON Electronically Signed On 05-13-2023 15:51:59 DOOR TRIMMER by Magdalene Flores M.D.
[2023-05-13 14:24] LABS: Hematocrit 49.1 % (42.0-52.0); Hemoglobin 16.2 g/dL (14.0-18.0); Mean Corpuscular Hemoglobin 29.4 pg (26-34); Mean Corpuscular Volume 89.1 fl (80-100); Mean Platelet Volume 8.8 fl (7.4-10.4); Platelet Count Result 177 k/mm3 (150-375); Red Blood Count 5.51 M/mm3 (4.6-6.20); Red Cell Distribution Width 15.8 % (11.5-14.5)
[2023-05-13 14:34] LABS: INR 1.7; Partial Thromboplastin Time 35.1 SECONDS (22.3-36.8)
[2023-05-13 14:36] LABS: Alanine Aminotransferase 38 U/L (6-50); Albumin Level 4.3 g/dL (3.5-5.1); Alkaline Phosphatase 98 U/L (38-126); Anion Gap 10 mmol/L (8-16); Aspartate Amino Transferase 111 U/L (17-59); Bilirubin,Total 0.7 mg/dL (0.2-1.3); Blood Urea Nitrogen 20 mg/dL (9-20); Carbon Dioxide 22 mmol/L (22-30); Chloride 105 mmol/L (98-107); Estimated CRCL calculation 80 ml/min; Estimated Glomerular Filt Rate > 60; Glucose 155 mg/dL (65-110); Potassium 3.9 mmol/L (3.4-5.0); Sodium 137 mmol/L (137-145)
[2023-05-13 14:39] LABS: Band Neutrophils Percent 10 % (0-6); Lymphocytes Absolute Manual 0.14 K/mm3 (1.1-4.5); Monocytes Absolute Manual 0.56 K/mm3 (0.1-0.90); Monocytes Percent Manual 4 % (3-9); Neutrophils Percent Manual 85 % (46-73); Platelet Estimate Adequate (Adequate); Total Cells Counted 100
[2023-05-13 14:40] LABS: Schistocytes None Seen (NORMAL)
[2023-05-13 14:42] LABS: Anisocytosis 1+ (NORMAL)
[2023-05-13 14:57] LABS: Influenza A QL RT-PCR Negative (Negative); Influenza B QL RT-PCR Negative (Negative); RSV RNA, RT-PCR Negative (Negative); SARS-CoV-2 RNA PCR Negative (Negative)
[2023-05-13 15:56] LABS: Appearance Urine Clear (Clear); Bacteria Urine None Seen /hpf; Bilirubin Urine Negative (Negative); Color Urine Dark Yellow (Yellow); Glucose Urine UA Negative (Negative); Hyaline Casts Urine Present /lpf; Ketones Urine Trace mg/dL (Negative); Leukocyte Esterase Ur Negative LEU/UL (Negative); Need Manual Microscopic Reviewed; Nitrate Urine Negative (Negative); Protein Urine 1+ mg/dL (Negative); Specific Grav Ur 1.025 (1.001-1.035); Squamous Epithelial Cell Urine None seen /hpf (Few); WBC Urine 0-5 /hpf; pH Urine 5.5 (5.0-9.0)
[2023-05-13 15:57] LABS: Add Urine Microscopic? YES
--- NOTE | 2023-05-13 16:45 | ED.URI ---
HPI - URI/Sore Throat General Chief Complaint: Upper Respiratory Infection <Alice Marc PA-C - Last Filed: 05/14/23 12:00> Stated Complaint: flu-like sx <Alice Marc PA-C - Last Filed: 05/14/23 12:00> Time Seen by Provider: 05/13/23 16:46 <Alice Marc PA-C - Last Filed: 05/14/23 12:00> Focused HPI: This is a 73 year old male that presents to the ER for vomiting. Family reports several episodes of emesis this morning. They were concerned as he seemed confused. Associated with generalized weakness. Reports some diarrhea and a cough. Denies fever, chest pain, shortness of breath. GENERAL: Well-appearing, well-nourished, and in no acute distress. HEAD: Normocephalic, atraumatic. CHEST: Clear to auscultation. ?No respiratory distress. HEART: Regular rate and rhythm.? NEURO: ?Alert and oriented x3. Patient screened in triage and initial orders placed.? ?Additional care and disposition to be based upon?diagnostic testing and treatment. <Alice Marc PA-C - Last Filed: 05/14/23 12:00> Source: patient and family <Alice Marc PA-C - Last Filed: 05/14/23 12:00> Mode of arrival: EMS <Alice Marc PA-C - Last Filed: 05/14/23 12:00> Limitations: altered mental status <Alice Marc PA-C - Last Filed: 05/14/23 12:00> History of Present Illness HPI Narrative: 73-year-old male present to the ED for evaluation after having multiple episodes of nausea and vomiting this morning. Upon arrival to the emergency department patient does feel improved. Family states during 1 of these episodes he did have some periods of confusion versus near-syncope. This has resolved at time of examination and patient denies any complaints. Patient reports that his nausea vomiting has resolved. <Davis Perez MD - Last Filed: 05/17/23 08:06> Related Data Home Medications: Home Medications Medication Instructions Recorded Confirmed coQ10 (ubiquinol) 200 mg capsule 200 mg PO BID 03/30/19 05/14/23 aspirin 81 mg tablet,delayed 81 mg PO DAILY 06/01/20 05/14/23 release (Adult Aspirin Regimen) albuterol 90 mcg/actuation aerosol 90 mcg inhalation Q4H PRN 02/22/22 05/14/23 inhaler Shortness Of Breath Or Wheezing diclofenac sodium 1 % topical gel 1 g topical QID PRN Pain 05/07/22 05/14/23 (Arthritis Pain (diclofenac)) methotrexate sodium 2.5 mg tablet 15 mg PO WEEKLY 08/12/22 05/14/23 econazole 1 % topical cream 1 applic topical PRN PRN Rash 05/14/23 05/14/23 terbinafine HCl 250 mg tablet 250 mg PO DAILY 05/14/23 05/14/23 <Alice Marc PA-C - Last Filed: 05/14/23 12:00> Allergies/Adverse Reactions: Allergies Allergy/AdvReac Type Severity Reaction Status Date / Time codeine Allergy Severe SEVERE Verified 05/16/23 13:57 head aches. fluoxetine Allergy Intermediate Dizziness. Verified 05/16/23 13:57 <Alice Marc PA-C - Last Filed: 05/14/23 12:00> Review of Systems Review of Systems: CONSTITUTIONAL: Denies fever CARDIOVASCULAR: Denies chest pain RESPIRATORY: Denies dyspnea. GASTROINTESTINAL: Reports nausea, vomiting, and diarrhea. NEUROLOGIC: Reports generalized weakness. <Alice Marc PA-C - Last Filed: 05/14/23 12:00> All systems reviewed & are unremarkable except as noted in HPI and below <Alice Marc PA-C - Last Filed: 05/14/23 12:00> [facility] Past Medical History Medical History: Medical History COVID-19 Dyspnea and respiratory abnormalities History of stroke Positive colorectal cancer screening using Cologuard test Prurigo nodularis Rheumatoid arthritis Rheumatoid arthritis, unspecified Thoracic aortic aneurysm 4.4 cm ascending <Alice Marc PA-C - Last Filed: 05/14/23 12:00> Surgical History Surgical History: Surgical History History of carpal tunnel release of both wrists History of tonsillect
[2023-05-13 17:54] LABS: Lipase 149 U/L (23-300)
--- NOTE | 2023-05-13 19:36 | PC.NURSE ---
patient is currently A&Ox3. family at bedside.
[2023-05-13] MEDS: ONDANSETRON INJ 4 MG/2 ML VIAL IV PUSH (22:14)
[2023-05-13] MEDS: SODIUM CHLORIDE 0.9% IV 1,000 ML 999 ML IV CONT (22:21)
== END 2023-05-13 23:18 | disposition home or self-care (01) ==
PROVIDERS: Family Medicine; Physician Assistant; Emergency Provider Emergency Medicine; PCP Family Medicine
DX: R11.2 Nausea with vomiting, unspecified (principal); Z20.822 Contact with and (suspected) exposure to COVID-19; M06.9 Rheumatoid arthritis, unspecified; Z86.16 Personal history of COVID-19; Z86.73 Personal history of transient ischemic attack (TIA), and cerebral infarction without residual deficits; R00.0 Tachycardia, unspecified; R94.31 Abnormal electrocardiogram [ECG] [EKG]; R90.82 White matter disease, unspecified; K80.20 Calculus of gallbladder without cholecystitis without obstruction; R91.8 Other nonspecific abnormal finding of lung field; J94.1 Fibrothorax; Z79.82 Long term (current) use of aspirin; Z79.01 Long term (current) use of anticoagulants
CPT/HCPCS: 36415; 70450; 71046; 74177; 80053; 81001; 83690; 85025; 85610; 85730; 87637; 93005; 96361; 96374; 99284; J2405; J7030; Q9967

== ENCOUNTER 2023-05-29 01:45 | Day surgery (SDC) | payer MEDICARE, BC, SELFPAY ==
[2023-05-14 10:57] VITALS: BMI 42.6
--- NOTE | 2023-05-21 15:42 | PC.NURSE ---
Spoke with pt and . Both stated understanding to stop Xarelto on 05/26/23.
--- NOTE | 2023-05-27 10:13 | SUR.PREOP ---
Patient called regarding upcoming procedure. Reviewed preop instructions, appointment times, and procedure prep.
[2023-05-29 09:11] VITALS: BP 143/81; PULSE 85; RESP 20; TEMP 35.8; O2SAT 95
[2023-05-29] MEDS: LACTATED RINGERS 1,000 ML 150 ML IV CONT (09:21)
--- NOTE | 2023-05-29 09:26 | WPDANESEPPF ---
Anes - Initial Pre Proc Eval Procedure: Operation Date: 05/29/23 10:00 Proposed Procedures p Colonoscopy - Victoriano Gordon MD Date/Time: 05/29/23 09:26 Surgeon: Victoriano Gordon MD Pre Op Diagnosis: hx colon polyps Patient Data Age: 73 Gender: M Height: 1.73 m Weight: 126.1 kg Last Vital Signs Temp 96.4 F L 05/29/23 09:11 Pulse 85 05/29/23 09:11 Resp 20 05/29/23 09:11 BP 143/81 H 05/29/23 09:11 Pulse Ox 95 05/29/23 09:11 O2 Del Method Room Air 05/29/23 09:11 Allergies Allergy/AdvReac Type Severity Reaction Status Date / Time codeine Allergy Severe SEVERE Verified 05/29/23 09:09 head aches. fluoxetine Allergy Intermediate Dizziness. Verified 05/29/23 09:09 Home Medications Medication Instructions Recorded Confirmed Type coQ10 (ubiquinol) 200 mg capsule 200 mg PO BID 03/30/19 05/14/23 History folic acid 1 mg tablet 1 mg PO DAILY #90 tabs 10/15/19 05/14/23 Rx aspirin 81 mg tablet,delayed 81 mg PO DAILY 06/01/20 05/14/23 History release (Adult Aspirin Regimen) fluticasone fur. 100 mcg-umeclid 1 inh inhalation DAILY 1 month #60 02/13/22 05/14/23 Rx 62.5 mcg-vilant 25 mcg ea inhalat.powder (Trelegy Ellipta) albuterol 90 mcg/actuation aerosol 90 mcg inhalation Q4H PRN 02/22/22 05/14/23 History inhaler Shortness Of Breath Or Wheezing diclofenac sodium 1 % topical gel 1 g topical QID PRN Pain 05/07/22 05/14/23 History (Arthritis Pain (diclofenac)) methotrexate sodium 2.5 mg tablet 15 mg PO WEEKLY 08/12/22 05/14/23 History montelukast 10 mg tablet 10 mg PO DAILY #30 tabs 09/30/22 05/14/23 Rx diazepam 5 mg tablet 5 mg PO Q8H PRN muscle spasm #30 01/09/23 05/14/23 Rx tabs rivaroxaban 20 mg tablet (Xarelto) See Rx Instructions .Route 03/19/23 05/29/23 Rx .COMPLEX #90 tabs pitavastatin calcium 4 mg tablet See Rx Instructions .Route 04/15/23 05/14/23 Rx (Livalo) .COMPLEX #90 tabs tadalafil 5 mg tablet (Cialis) 5 mg PO DAILY #90 tabs 04/28/23 05/14/23 Rx econazole 1 % topical cream 1 applic topical PRN PRN Rash 05/14/23 05/14/23 History terbinafine HCl 250 mg tablet 250 mg PO DAILY 05/14/23 05/14/23 History ezetimibe 10 mg tablet See Rx Instructions .Route 05/20/23 05/21/23 Rx .COMPLEX #90 tabs Patient hx anesthesia problems: none Family hx anesthesia problems: none Results Review: All pre-operative results and documents have been reviewed as part of the pre-operative evaluation. [facility] Past Medical History Medical History COVID-19 Dyspnea and respiratory abnormalities History of stroke Positive colorectal cancer screening using Cologuard test Prurigo nodularis Rheumatoid arthritis Rheumatoid arthritis, unspecified Thoracic aortic aneurysm 4.4 cm ascending Surgical History Surgical History History of carpal tunnel release of both wrists History of tonsillectomy Family History Family History Father Hypertension Family history of cardiovascular disease Family history of chronic obstructive pulmonary disease Family history of congestive heart failure Family history of elevated blood lipids Acute myocardial infarction Family history of kidney disease Sibling Family history of cardiovascular disease Mother Family history of glaucoma Hypertension Family history of cardiovascular disease Cerebrovascular accident Other Diabetes mellitus No family history of cardiovascular disease Social History Social History Smoking status: Never smoker Second hand tobacco smoke exposure: No Alcohol intake: current Drinks per week: 1 Substance use: never Substance use type: does not use Other substance usage details: CBD oil-OCC. Lack of Transportation: No Lack of Food: Never
--- NOTE | 2023-05-29 10:09 | PM.HPGS ---
History of Present Illness History of Present Illness Consent: Risks, benefits, and alternatives have been discussed and questions answered. Patient agrees to proceed with procedure. Chief complaint: hx colon polyps Narrative: Hemal Ying is a 73 year old male here for colonoscopy, had large rectal polyp removed last year Review of Systems Constitutional: Constitutional: Denies headache(s) and Denies weakness Eyes: Eyes: Denies blurry vision ENT: Reports Normal hearing present, Denies headache(s) and Denies neck pain Cardiovascular: Cardiovascular: Denies chest pain and Denies dyspnea Respiratory: Respiratory: Denies dyspnea Gastrointestinal: Gastrointestinal: Reports no additional gastrointestinal complaints Genitourinary: Genitourinary: Denies dysuria Musculoskeletal: Musculoskeletal: Denies neck pain Integumentary/Breasts: Skin/Breast: Denies dry skin Neurologic: Reports Normal hearing present, Denies headache(s) and Denies weakness Psychiatric: Psychiatric: Denies anxiety Endocrine: Endocrine: Denies change in body appearance Hematologic/Lymphatic: Hematologic/Lymphatic: Denies easy bleeding Allergic/Immunologic: Allergic/Immunologic: Denies urticaria PMFSH Past Medical History Medical History (Updated 05/29/23 @ 10:10 by Victoriano Gordon MD) Adenomatous colon polyp COVID-19 Dyspnea and respiratory abnormalities History of stroke Positive colorectal cancer screening using Cologuard test Prurigo nodularis Rheumatoid arthritis Rheumatoid arthritis, unspecified Thoracic aortic aneurysm 4.4 cm ascending Surgical History Surgical History History of carpal tunnel release of both wrists History of tonsillectomy Family History Family History Father Hypertension Family history of cardiovascular disease Family history of chronic obstructive pulmonary disease Family history of congestive heart failure Family history of elevated blood lipids Acute myocardial infarction Family history of kidney disease Sibling Family history of cardiovascular disease Mother Family history of glaucoma Hypertension Family history of cardiovascular disease Cerebrovascular accident Other Diabetes mellitus No family history of cardiovascular disease Social History Social History Smoking status: Never smoker Second hand tobacco smoke exposure: No Alcohol intake: current Drinks per week: 1 Substance use: never Substance use type: does not use Other substance usage details: CBD oil-OCC. 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 100 mcg-umeclid 1 inh inhalation DAILY 1 month #60 02/13/22 05/14/23 Rx 62.5 mcg-vilant 25 mcg ea inhalat.powder (Trelegy Ellipta) albuterol 90 mcg/actuation aerosol 90 mcg inhalation Q4H PRN 02/22/22 05/14/23 History inhaler Shortness Of Breath Or Wheezing diclofenac sodium 1 % topical gel 1 g topical QID MO
[2023-05-29 10:27] VITALS: BP 123/81; PULSE 76; RESP 23; O2SAT 94
[2023-05-29 10:37] VITALS: BP 128/55; PULSE 72; RESP 23; O2SAT 96
[2023-05-29 10:47] VITALS: BP 147/94; PULSE 73; RESP 13; O2SAT 96
== END 2023-05-29 10:49 | disposition home health service (06) ==
PROVIDERS: PCP Family Medicine; Visit Provider Internal Medicine Gastroenterology
PROC: 0DJD8ZZ Inspection of Lower Intestinal Tract, Via Natural or Artificial Opening Endoscopic (ICD-10-PCS; CPT 45378; principal; 2023-05-29 10:00)
DX: Z12.11 Encounter for screening for malignant neoplasm of colon (principal); K64.8 Other hemorrhoids; K57.30 Diverticulosis of large intestine without perforation or abscess without bleeding; E66.01 Morbid (severe) obesity due to excess calories; Z68.41 Body mass index [BMI] 40.0-44.9, adult; Z79.82 Long term (current) use of aspirin; Z79.51 Long term (current) use of inhaled steroids; Z79.01 Long term (current) use of anticoagulants; Z98.890 Other specified postprocedural states; Z86.010 Personal history of colon polyps; Z86.79 Personal history of other diseases of the circulatory system; Z86.73 Personal history of transient ischemic attack (TIA), and cerebral infarction without residual deficits; Z82.49 Family history of ischemic heart disease and other diseases of the circulatory system
CPT/HCPCS: G0105; J7120

== ENCOUNTER 2023-06-27 10:09 | Outpatient (CLI) | payer MEDICARE, BC, SELFPAY ==
[2023-06-27 17:11] LABS: Amylase 82 U/L (30-110)
== END 2023-06-27 10:10 | disposition home or self-care (01) ==
LOC: ANHSURGERY 10:13
PROVIDERS: PCP Family Medicine; Visit Provider Surgery
DX: K80.20 Calculus of gallbladder without cholecystitis without obstruction (principal); Z01.818 Encounter for other preprocedural examination
CPT/HCPCS: 36415; 82150; 86850; 86900; 86901

== ENCOUNTER 2023-07-01 01:22 | Day surgery (SDC) | payer MEDICARE, BC, SELFPAY ==
[2023-06-26 10:55] VITALS: BMI 41.3
--- NOTE | 2023-06-26 11:03 | PC.NURSE ---
PRE-OP INSTRUCTIONS, PLEASE READ CAREFULLY Report to the Outpatient Waiting Room, entrance under the green pavilion located off [facility], at time _0600_ on date _07/01/23_. Planned Procedure Time: _0730_. Time changes happen often and if your time is changed the preop area will call you the afternoon before. - You and your visitor will be asked to self-screen and do not enter if you have any COVID symptoms. - A mask is optional within the hospital at this time. Patients may have clear liquids (water, carbonated beverages, clear teas, apple juice) until 3 hours prior to surgery (0430 AM) with a maximum of 20 ounces. - No food from midnight until time of surgery Take the following medications with a SIP of water the morning of surgery: _TRELEGY INHALER, & ALBUTEROL INHALER, DIAZEPAM IF NEEDED_ DO NOT STOP ANY OF YOUR OTHER PRESCRIPTION MEDICATIONS PRIOR TO SURGERY ?EXCEPT THE FOLLOWING Medications to discontinue per physician ___NONE____, Date to take last dose Please no make-up, nail czech, hairspray, perfume, deodorant, or body powder the day of surgery. No jewelry (including any body piercings) or valuables the day of surgery, leave them at home. Please take a shower or bath the night before, or the morning of, surgery with an antibacterial soap. Wear comfortable, loose fitting clothing. - Jewelry must be removed prior to entering the operating room. Rings and piercings that are not removed may be cut off. - The hospital will not accept responsibility for valuables. - Please leave all valuables, including medications, at home the day of surgery. If you are going home after surgery, a licensed driver's license examiner must drive you home. - NO public transportation without another adult if you receive anesthesia. - We recommend that an adult stay with you for 24 hours following discharge. - We also recommend that you do not drive, make important decision, drink alcoholic beverages, or take any drugs that were not prescribed by your health care provider for at least 24 hours after your discharge time. Follow any additional instructions given to you from your surgeon. If you or anyone in your household have experienced Covid symptoms in the past week, please notify your surgeon or the nurse liaison at the phone number below for possible testing. Telephone instructions given to _PATIENT'S SPOUSE (VENKAT)_and asked if any additional questions and then verbalized understanding. Patient advised to call surgeon office or pre surgery nurse liaison [phone] if any additional questions.
[2023-07-01] VITALS (9 sets, daily range): BP systolic 97–150; BP diastolic 61–81; PULSE 66–80; RESP 12–18; TEMP 36.1–36.3; O2SAT 95–100
--- NOTE | 2023-07-01 06:42 | WPDANESEPPF ---
Anes - Initial Pre Proc Eval Procedure: Operation Date: 07/01/23 07:30 Proposed Procedures p Laparoscopic Cholecystectomy, Davinci Assisted - Felipe Yates DO Date/Time: 07/01/23 06:42 Surgeon: Felipe Yates DO Pre Op Diagnosis: Sym Cholelithiasis Patient Data Age: 73 Gender: M Height: 1.73 m Weight: 123.18 kg Allergies Allergy/AdvReac Type Severity Reaction Status Date / Time codeine Allergy Severe SEVERE Verified 06/26/23 10:50 head aches. fluoxetine Allergy Intermediate Dizziness. Verified 06/26/23 10:50 Home Medications Medication Instructions Recorded Confirmed Type coQ10 (ubiquinol) 200 mg capsule 200 mg PO DAILY 03/30/19 06/26/23 History folic acid 1 mg tablet 1 mg PO DAILY #90 tabs 10/15/19 06/26/23 Rx aspirin 81 mg tablet,delayed 81 mg PO DAILY 06/01/20 06/26/23 History release (Adult Aspirin Regimen) fluticasone fur. 100 mcg-umeclid 1 inh inhalation DAILY 1 month #60 02/13/22 06/26/23 Rx 62.5 mcg-vilant 25 mcg ea inhalat.powder (Trelegy Ellipta) albuterol 90 mcg/actuation aerosol 90 mcg inhalation Q4H PRN 02/22/22 06/26/23 History inhaler Shortness Of Breath Or Wheezing diclofenac sodium 1 % topical gel 1 g topical QID PRN Pain 05/07/22 06/26/23 History (Arthritis Pain (diclofenac)) montelukast 10 mg tablet 10 mg PO DAILY #30 tabs 09/30/22 06/26/23 Rx diazepam 5 mg tablet 5 mg PO Q8H PRN muscle spasm #30 01/09/23 06/26/23 Rx tabs pitavastatin calcium 4 mg tablet See Rx Instructions .Route 04/15/23 06/26/23 Rx (Livalo) .COMPLEX #90 tabs tadalafil 5 mg tablet (Cialis) 5 mg PO DAILY #90 tabs 04/28/23 06/26/23 Rx econazole 1 % topical cream 1 applic topical PRN PRN Rash 05/14/23 06/26/23 History terbinafine HCl 250 mg tablet 250 mg PO DAILY 05/14/23 06/26/23 History ezetimibe 10 mg tablet See Rx Instructions .Route 05/20/23 06/26/23 Rx .COMPLEX #90 tabs rivaroxaban 20 mg tablet (Xarelto) 20 mg PO DAILY #90 tabs 06/16/23 06/26/23 Rx Patient hx anesthesia problems: none Family hx anesthesia problems: none Results Review: All pre-operative results and documents have been reviewed as part of the pre-operative evaluation. [facility] Past Medical History Medical History Adenomatous colon polyp COVID-19 Dyspnea and respiratory abnormalities History of stroke Positive colorectal cancer screening using Cologuard test Prurigo nodularis Rheumatoid arthritis Rheumatoid arthritis, unspecified Thoracic aortic aneurysm 4.4 cm ascending Surgical History Surgical History History of carpal tunnel release of both wrists History of tonsillectomy Family History Family History Father Hypertension Family history of cardiovascular disease Family history of chronic obstructive pulmonary disease Family history of congestive heart failure Family history of elevated blood lipids Acute myocardial infarction Family history of kidney disease Sibling Family history of cardiovascular disease Mother Family history of glaucoma Hypertension Family history of cardiovascular disease Cerebrovascular accident Other Diabetes mellitus No family history of cardiovascular disease Social History Social History Smoking status: Never smoker Second hand tobacco smoke exposure: Yes (RETIRED FROM [employer]) Alcohol intake: current Drinks per week: 1 Substance use: current Substance use type: does not use Other substance usage details: OCCASIONAL CBC OIL Last use: UNABLE TO RECALL Lack of Transportation: No Lack of Food: Never True Current Housing: I Have Housing Concerned About Future Housing: No Difficulty Paying Gas/Electric Bills: No Difficulty Paying for Meds: No Currently Unemployed: No Education: Bachelor'
[2023-07-01] MEDS: LACTATED RINGERS 1,000 ML 30 ML IV CONT ×2 (06:50→08:37)
[2023-07-01] MEDS: KETOROLAC 15 MG/ML VIAL (*BKC) IV PUSH (06:55)
[2023-07-01] MEDS: ACETAMINOPHEN 500 MG TABLET 1000 MG PO (06:56)
[2023-07-01] MEDS: INDOCYANINE GREEN 25 MG VIAL WITH DILUENT 3.75 MG IV PUSH (06:57)
--- NOTE | 2023-07-01 07:14 | WPDHPUPDATE1 ---
History and Physical Update Update Date/Time: 07/01/23 07:14 History and Physical has been reviewed, including an updated exam of the patient. There are NO changes in the patient's condition. Risks, benefits, and alternatives have been discussed and questions answered. Patient agrees to proceed with procedure.
[2023-07-01] MEDS: ceFAZolin 3 GM/D5W 100 ML 100 ML IVPB (07:27)
[2023-07-01] MEDS: BUPIVACAINE/EPINEPHRINE 0.5% 50 ML VIAL 30 ML INFILTRATE (08:00)
--- NOTE | 2023-07-01 08:42 | W.PM.PROC2 ---
Procedure Note - Detailed Date of Procedure 07/01/23 Pre-op Diagnosis Symptomatic Cholelithiasis Post-op Diagnosis Same Procedure Performed 1. Laparoscopic cholecystectomy with cholangiography, da Fabio assisted 2. Interpretation of cholangiography Surgeon Felipe Yates DO Anesthesia General and Local (0.5% bupivacaine) Indications This is A 73-year-old man who presented with an episode of nausea and vomiting that brought him to the emergency department. He was somewhat incoherent when this happened and was taken by EMS to be evaluated. He did not have any signs of stroke on the workup, but did have some slight abdominal tenderness and was found to have cholelithiasis with mild gallbladder wall thickening. He had eaten a fairly heavy meal that night before the symptoms started. The patient followed up in the office for further discussions and discussions were made with the patient about treatment options. Decision was made to proceed with robotic assisted laparoscopic cholecystectomy. Findings Robotic assisted laparoscopic cholecystectomy was performed. The patient was given 1.5 mL of indocyanine green preoperatively through his IV. Near infrared fluorescence imaging was used during the procedure to identify the cystic duct and biliary anatomy. This allowed me to safely identify the cystic duct and avoid any injuries to the common bile duct. The gallbladder had several gallstones within it but was otherwise normal. The gallbladder was removed and sent to the lab for pathology. Description of Procedure Procedure as well as risks, benefits, and alternatives were discussed with the patient. Written consent was obtained and placed in chart prior to procedure. 1.5 mL of indocyanine green was given intravenously in preop. Patient was brought back to surgical suite. He was placed supine on operating table. Time-out was done to confirm patient and procedure. He was then intubated by the anesthesia department. His abdomen was then prepped and draped in sterile fashion using chlorhexidine prep. 0.5% bupivacaine was infiltrated locally at the site of each port placement. An 8 mm incision was made just superior to the umbilicus and a 5 mm Optiview trocar was then advanced through the abdominal layers under direct visualization. Once inside the abdominal cavity, carbon dioxide insufflation was used to create a pneumoperitoneum. The camera was inserted and the abdomen was inspected. No mediated abnormalities were noted. The patient was placed in 10? reverse Trendelenburg position and rotated 5? to the left. Two 8 mm incisions were made in the right lateral abdomen and 2 8 mm trocars were inserted under direct visualization. A 12 mm incision was made in the left lateral abdomen and a 12 mm trocar was inserted under direct visualization. The 5 mm Optiview trocar was then removed and another 8 mm trocar was inserted in its place. The robotic arms were then brought up to the patient's bedside and secured to each port. The camera and instruments were inserted. I then moved over to the robotic consult to take control of the camera and instruments. The gallbladder was grasped at the fundus and retracted cephalad. The infundibulum of the gallbladder was then grasped and retracted laterally. Hook electrocautery was then used to carefully dissect around the neck of the gallbladder. The cystic duct was identified and a window was created around it using hook electrocautery. The cystic artery was also identified and a window was created behind it using hook electrocautery. Critical view of safety was identified visualizing the cystic duct running directly into the neck of the gallbladder and the cystic artery running directly into the wall the gallbladder. The camera view was switched to firefly mode and the indocyanine green within the gallbladder and cystic duct was clearly visualized. No other structures were noted running into this region and there did not ap
--- NOTE | 2023-07-01 08:52 | SUR.PHASEI ---
report to Gokul he will resume care at this time
[2023-07-01] MEDS: fentaNYL CITRATE INJ (*CRX) 100 MCG/2 ML VIAL 25 MCG IV PUSH ×2 (09:15→09:17)
[2023-07-01] MEDS: oxyCODONE HCL (*CRX) 5 MG TAB IR PO (10:00)
== END 2023-07-01 10:48 | disposition home or self-care (01) ==
PROVIDERS: PCP Family Medicine; Visit Provider Surgery
PROC: 0FT44ZZ Resection of Gallbladder, Percutaneous Endoscopic Approach (ICD-10-PCS; CPT 47562; principal; 2023-07-01 07:30)
DX: K80.10 Calculus of gallbladder with chronic cholecystitis without obstruction (principal); M06.9 Rheumatoid arthritis, unspecified; I71.21 Aneurysm of the ascending aorta, without rupture; Z86.73 Personal history of transient ischemic attack (TIA), and cerebral infarction without residual deficits; Z79.82 Long term (current) use of aspirin; Z79.51 Long term (current) use of inhaled steroids; Z79.01 Long term (current) use of anticoagulants; E66.01 Morbid (severe) obesity due to excess calories; Z68.41 Body mass index [BMI] 40.0-44.9, adult
CPT/HCPCS: 47563; 74300; S2900; 88304; A9270; J0690; J1100; J1170; J1885; J2371; J2405; J3010; J7030; J7120

== ENCOUNTER 2023-07-29 08:55 | Outpatient (CLI) | payer MEDICARE, BC, SELFPAY ==
[2023-07-29 14:09] LABS: Alanine Aminotransferase 25 U/L (6-50); Albumin Level 4.1 g/dL (3.5-5.1); Alkaline Phosphatase 101 U/L (38-126); Anion Gap 6 mmol/L (4-12); Aspartate Amino Transferase 81 U/L (17-59); Bilirubin,Total 0.6 mg/dL (0.2-1.3); Blood Urea Nitrogen 15 mg/dL (9-20); Calcium 9.1 mg/dL (8.4-10.2); Carbon Dioxide 27 mmol/L (22-30); Chloride 107 mmol/L (98-107); Cholesterol 107 mg/dL (0-200); Estimated Glomerular Filt Rate 60; Glucose 94 mg/dL (65-110); HDL Direct 41 mg/dL; Potassium 4.7 mmol/L (3.4-5.0); Sodium 140 mmol/L (137-145); Triglycerides 115 mg/dL (<150)
[2023-07-29 14:20] LABS: LDL Cholesterol Direct 52 mg/dL
[2023-07-29 14:37] LABS: Prostate Specific Antigen 0.6 ng/mL (< OR = 4.0)
[2023-07-29 15:59] LABS: Hemoglobin A1C 5.6 % (<5.7)
== END 2023-07-29 08:56 | disposition home or self-care (01) ==
PROVIDERS: PCP Family Medicine; Visit Provider Nurse Practitioner Family
DX: R79.89 Other specified abnormal findings of blood chemistry (principal); Z79.899 Other long term (current) drug therapy; E78.2 Mixed hyperlipidemia; R73.01 Impaired fasting glucose; Z12.5 Encounter for screening for malignant neoplasm of prostate
CPT/HCPCS: 36415; 80053; 80061; 83036; 84153; 84443; G0103

== ENCOUNTER 2023-09-05 09:50 | Outpatient (CLI) | payer MEDICARE, BC, SELFPAY ==
[2023-09-05 13:23] LABS: Basophils Absolute Auto 0.1 K/mm3 (0.0-0.1); Basophils Percent Auto 0.8 % (0.2-1.2); Eosinophils Absolute Auto 0.3 K/mm3 (0-0.3); Eosinophils Percent Auto 3.2 % (0-4.4); Hematocrit 49.3 % (42.0-52.0); Hemoglobin 15.8 g/dL (14.0-18.0); Immature Granulocyte Absolute 0.02 K/mm3 (0.00-0.031); Immature Granulocyte Percent A 0.3 % (0-0.5); Lymphocytes Absolute Auto 1.88 K/mm3 (0.9-3.2); Lymphocytes Percent Auto 23.9 % (18.3-44.2); Mean Corpuscular Hemoglobin 29.2 pg (26-34); Mean Platelet Volume 9.2 fl (7.4-10.4); Monocytes Absolute Auto 0.8 K/mm3 (0.1-0.6); Monocytes Percent Auto 9.8 % (2.6-8.5); Neutrophils Absolute Auto 4.9 K/mm3 (1.3-6.7); Platelet Count Result 202 k/mm3 (150-375); Red Blood Count 5.42 M/mm3 (4.6-6.20); White Blood Count 7.9 K/mm3 (4.5-10.0)
[2023-09-05 13:32] LABS: Alanine Aminotransferase 22 U/L (6-50); Albumin Level 4.1 g/dL (3.5-5.1); Alkaline Phosphatase 98 U/L (38-126); Anion Gap 4 mmol/L (4-12); Aspartate Amino Transferase 82 U/L (17-59); Bilirubin,Total 0.8 mg/dL (0.2-1.3); Blood Urea Nitrogen 18 mg/dL (9-20); Calcium 8.8 mg/dL (8.4-10.2); Carbon Dioxide 28 mmol/L (22-30); Chloride 107 mmol/L (98-107); Estimated Glomerular Filt Rate 60; Glucose 98 mg/dL (65-110); Potassium 4.2 mmol/L (3.4-5.0); Sodium 139 mmol/L (137-145)
== END 2023-09-05 09:51 | disposition home or self-care (01) ==
PROVIDERS: PCP Family Medicine
DX: M06.9 Rheumatoid arthritis, unspecified (principal)
CPT/HCPCS: 36415; 80053; 85025

== ENCOUNTER 2024-08-03 13:27 | Outpatient (CLI) | payer MEDICARE, BC, SELFPAY ==
--- NOTE | ~2024-08-03 | XR_ITS ---
Clinical Indication: Pleural effusion PA and lateral views of the chest: Comparison: 05/13/2023 Findings: Small right pleural effusion present. There is calcified right basilar pleural plaque. Left lung clear. Cardiomediastinal silhouette is within normal limits. Bones and soft tissues are unrema rkable. Impression: Small right pleural effusion. Calcified right basilar pleural plaque. Reviewed, dictated and finalized at location . Impression: Small right pleural effusion. Calcified right basilar pleural plaque.
--- OUTSIDE RECORDS SUMMARY | 2024-08-03 13:48 | XMS_ITS | Clinical Summary ---
Author Organization [facility] [address] Address [address] [place] [address] Care Team Providers Care Rescue Instructor Name Role Phone Toby Zhong MD Primary Care Provider [phone] Allergies Active Allergy Reactions Criticality Noted Date Comments Codeine Other (See Comments) 12/24/2016 Headaches Fluoxetine Hcl Dizziness 12/24/2016 Medications coenzyme Q10 200 mg Capsule 7 Active diazePAM (VALIUM) 2 mg tablet Take 2 mg by mouth. 8 Active diclofenac sodium (VOLTAREN) 1 % gel 4 g by Topical route 2 TIMES DAILY. Apply to hands and knees 5 Active econazole (SPECTAZOLE) 1 % Cream Apply to groin folds and feet twice weekly to keep fungus away. 30 days supply. 8 Active ezetimibe (ZETIA) 10 mg tablet Take 10 mg by mouth. 7 Active FLUTICASONE-GRECIA METEROL INHALATION Take 1 Puff by inhalation. Active folic acid (FOLVITE) 1 mg tablet Take 1 mg by mouth. 7 Active pitavastatin calcium (LIVALO) 4 mg Tablet Take 1 Tablet by mouth. 7 Active montelukast (SINGULAIR) 10 mg tablet Take 10 mg by mouth. Active omeprazole (PriLOSEC) 20 mg Capsule, Delayed Release(E.C.) Take 1 Capsule by mouth. 6 Active rivaroxaban (XARELTO) 20 mg Tablet Take 1 Tablet by mouth. Active triamcinolone acetonide (KENALOG) 0.1 % Ointment 7 Active aspirin (ECOTRIN EC) 81 mg Tablet, Delayed Release (E.C.) Take 81 mg by mouth daily. Active budesonide-form oterol (SYMBICORT) 160-4.5 mcg/actuation HFA Aerosol Inhaler Take 2 Puffs by inhalation 2 times daily. Active FLUoxetine (PROzac) 20 mg tablet Take 20 mg by mouth daily. Active fluticasone/ume clidin/vilanter (TRELEGY ELLIPTA INHALATION) Take by inhalation. Active tadalafiL (Cialis) 5 mg tablet Take 5 mg by mouth 1 time daily as needed for Erectile Dysfunction. Active Active Problems Patient Care Coordination No te Formatting of this note migh t be different from the original. Dr. Khan- Vascular Surgery [phone] Problem Noted Date Diagnosed Date Status post carotid endarterectomy 02/20/2021 Carotid artery stenosis 01/19/2018 Family History Medical History Relation Name Comments Heart Attack Brother Heart Disease Father Stroke Maternal Grandmother Stroke Mother Relation Name Status Comments Brother Father Maternal Grandmother Mother Social History Tobacco Use Types Packs/Day Years Used Date Smoking Tobacco: Never Smokeless Tobacco: Never Tobacco Cessation:Counseling Given: Not Answered Alcohol Use Standard Drinks/Week Comments Yes 2 (1 standard drink = 0.6 oz pur e alcohol) weekly Sex and Gender Information Value Date Recorded Sex Assigned at Not on file Legal Sex Male 12:27 PM CDT Gender Identity Not on file Sexual Orientation Not on file Last Filed Vital Signs Vital Sign Reading Time Taken Comments Blood Pressure 142/67 01/29/2023 11:01 AM CANOE INSPECTOR FINAL Pulse 94 01/29/2023 11:01 AM CANOE INSPECTOR FINAL Temperature 36.5 C (97.7 F) 02/19/2021 9:26 AM CANOE INSPECTOR FINAL Respiratory Rate - - Oxygen Saturation 94% 01/29/2023 11:01 AM CANOE INSPECTOR FINAL Inhaled Oxygen Concentration - - Weight 129.3 kg (285 lb) 01/29/2023 11:01 AM CANOE INSPECTOR FINAL Height 180.3 cm (5' 11 ) 01/29/2023 11:01 AM CANOE INSPECTOR FINAL Body Mass Index 39.75 01/29/2023 11:01 AM CANOE INSPECTOR FINAL Plan of Treatment Health Maintenance Due Date Last Done Comments DTAP/TDAP/TD VACCINES (1 - Tdap) 1970 COLORECTAL SCREENING 02/18/1996 Colorectal Cancer Screening 02/18/1996 FIT-DNA Q 3 years 02/18/1996 FIT/FOBT Q 1 year 02/18/1996 Flex Sig/CT Colonography Q 5 years 02/18/1996 ZOSTER VACCINE (1 of 2) 2001 PNEUMOCOCCAL VACCINE 50+ YEA RS (2 of 2 - PCV) 01/20/2014 01/20/2013, 10/28/2011, 09/22/2010 INFLUENZA VACCINE (#1) 2023 03/02/2020, 2018 RSV VACCINE (60+ or ) (1 - 1-dose 75+ series) 2026 Insurance MEDICARE PART A AND B [facility] Care Teams Rescue Instructor Relationship Specialty Start Date End Date Toby Zhong MD PCP - General Family Practice 01/19/18
--- OUTSIDE RECORDS SUMMARY | 2024-08-03 13:48 | XMS_ITS | Encounter Summary ---
Author Organization [facility] Address [address] [facility] [place] [address] Care Team Providers Care Treater Helper Name Role Phone Toby Zhong MD Primary Care Provider [phone]- [phone] Rajani Thompson MD Unavailable Reason for Visit * Reason Onset Date Comments Returned Call 05/06/2024 Encounter Details Date Type Department Care Team (Late st Contact Info) Description 05/06/2024 Telephone [facility] - Dermatology [address] [facility], [facility] [place] [address] Rubén Maloney MD [address] [facility] [place] [address] Returned Call Social History Tobacco Use Types Packs/Day Years Used Date Smoking Tobacco: Never Smokeless Tobacco: Never Alcohol Use Standard Drinks/Week Comments Yes 2 (1 standard drink = 0.6 oz pur e alcohol) weekly vincentey PHQ-2 Answer Date Recorded Patient Health Questionnaire-2 Score 0 04/06/2024 Sex and Gender Information Value Date Recorded Sex Assigned at Not on file Legal Sex Male 5:21 PM TWISTING DEPARTMENT END FINDER Gender Identity Not on file Sexual Orientation Not on file documented as of this encounter Miscellaneous Notes * Telephone Encounter - Rubén Maloney MD - 05/06/2024 12:15 PM CST Pt called, see dermpath result note TING DEPARTMENT END FINDER * Telephone Encounter - Maude Li - 05/06/2024 10:58 AM CST Pt keeps missing all from office with CC number, no notes on what we need to do or direct Please advise caller TING DEPARTMENT END FINDER documented in this encounter Plan of Treatment Upcoming Encounters Date Type Department Care Team (Late st Contact Info) Description 10/27/2024 2:30 PM CDT Office Visit [facility] - Dermatology [address] [place] [address], [place] [address] Alice Li MD [address] [place] [address] [place] [address] documented as of this encounter Visit Diagnoses Not on filedocumented in this encounter Care Teams Treater Helper Relationship Specialty Start Date End Date Toby Zhong MD [address] [place] [phone] PCP - General 09/20/13 Rajani Thompson MD [address] [place] [id number] Dermatology 09/27/21 documented as of this encounter
--- OUTSIDE RECORDS SUMMARY | 2024-08-03 13:48 | XMS_ITS | Clinical Summary ---
Author Organization [facility] Address [address] [place] [address] Care Team Providers Care Airport Operations Duty Manager Name Role Phone Toby Zhong MD Primary Care Provider [phone] Rajani Thompson MD Unavailable [phone] Source Comments [facility],non-owned Affiliates and Associated Physician Practices is amultiple site organization consisting of ambulatory clinics and hospital sitesin [place], [place], [place] and [place]. This disclosure is being madepursuant to the Care Everywhere program and may not contain all information available regarding this patient. Last updated 17.[facility] Allergies Active Allergy Reactions Criticality Noted Date Comments Codeine Other Low 12/24/2016 headache Fluoxetine Other Low 12/24/2016 dizziness Medications * Be aware that medications may not be up to date on this document. Alwaysverify current medications with the patient. ezetimibe (ZETIA) 10 MG tablet Take 1 (one) tablet by mouth DAILY 7 Active albuterol HFA (PROVENTIL;MADHU EDUARDA;PROAIR) 108 (90 BASE) MCG/ACT inhaler Inhale 2 (two) puffs by mouth 4 times daily 4 Active aspirin (ASPIRIN) 81 MG tablet Take 1 (one) tablet by mouth once daily Active diclofenac sodium (VOLTAREN) 1 % gel Apply 1 (one) g to affected area 4 times daily 5 Active montelukast (SINGULAIR) 10 MG tablet Take 1 (one) tablet by mouth once daily Active LIVALO 4 MG tablet Take 1 (one) tablet by mouth every evening 1 Active XARELTO 20 MG tablet Take 1 (one) tablet by mouth daily with food 1 Active diazePAM (VALIUM) 5 MG tablet Take 1 (one) tablet by mouth 3 times daily as needed 1 Active TRELEGY ELLIPTA 100-62.5-25 MCG/INH Inhale 1 (one) puff by mouth once daily 1 Active econazole nitrate (Spectazole) 1 % creamIndications :Tinea pedis of both feet,Tinea cruris Apply to rash on feet 1-2 times daily. 30 days supply. 85 g 11 4 Active triamcinolone acetonide (Kenalog) 0.1 % ointmentIndicati ons:Rash and other nonspecific skin eruption Apply to affected area on of rash on body BID. 30 day supply 80 g 1 5 Active tadalafil (Cialis) 5 MG tablet Take 1 (one) tablet by mouth at bedtime Active Coenzyme Q10 (CoQ10) 200 MGIndications:Ne ed for hepatitis C screening test,Need for hepatitis B screening test,Screening for tuberculosis Take 200 (two hundred) mg by mouth once daily for 90 days 90 capsule 5 07/28/19 25 Discontinu ed(List Clean-Up) Coenzyme Q10 (COQ-10 PO) 07/28/19 25 Discontinu ed(List Clean-Up) propranolol ER 24hr (Inderal LA) 60 MG capsule TAKE 1 CAPSULE BY MOUTH EVERY DAY FOR TREMOR 07/28/19 25 Discontinu ed(List Clean-Up) Active Problems Problem Noted Date Diagnosed Date Status post carotid endarterectomy 02/20/2021 Primary generalized (osteo)arthritis 07/22/2016 Primary osteoarthritis involving multiple joints 07/22/2016 Seropositive rheumatoid arthritis 07/22/2016 Mild intermittent asthma, uncomplicated 06/28/19 15 Anticardiolipin antibody positive 06/27/2014 Mild intermittent asthma without complication Personal history of thrombophlebitis 02/21/2014 Other specific arthropathies , not elsewhere classified, unspecified shoulder 08/24/2013 Personal history of transien t ischemic attack (TIA), and cerebral infarction without residual deficits 08/24/2013 Encounter for therapeutic drug level monitoring 08/24/2013 Rotator cuff arthropathy 08/24/2013 Therapeutic drug monitoring 08/24/2013 Long-term use of immunosuppressant medication PR3 ANCA antibodies present 04/20/2013 Occlusion and stenosis of unspecified carotid ar carlos 10/19/2012 Cerebral infarction due to u nspecified occlusion or stenosis of unspecified carotid arteries 09/14/2012 Acquired trigger finger 01/28/2012 Resolved Problems Problem Noted Date Diagnosed Date Resolved Date Rheumatoid arthritis with rheumatoid factor 07/22/2016 03/06/2021 Hx of deep vein thrombophleb itis of lower extremity 02/21/2014 03/06/2021 Other custodial (current) drug therapy 08/24/2013 03/06/2021 Hx of completed stroke 08/24/201303/06 Other specified abnormal imm unological findings in serum 04/20/2013 03/06/2021 Chronic steroid use 04/20/2013 03/06/20 21 Encounters Date Type Department Care Team Description 07/28/2024 Telephone [facility] - Rheumatology [address] [place] [phone] Jeffrey Lovelace MD Follow-up 07/27/2024 1:30 PM CDT Office Visit [facility] - Rheumatology [address] [place] [phone] Jeffrey Lovelace MD Rheumatoid arthritis with positive rheumatoid factor, involving unspecified site (HCC) (Primary Dx) 07/27/2024 Travel 05/06/2024 Telephone [facility] - Dermatology [address] [place] [address] [place] [phone] Rubén Maloney MD Returned Call from Last 3 Months Immunizations Immunization Administration Dates Next Due INFLUENZA VACCINE 01/21/2018 PNEUMOCOCCAL PCV VACCINE 09/22/2010 PNEUMOCOCCAL PPSV23 01/20/2013,10/28/2011 iNFLUENZA VACCINE, RECOM-PEÑA, QUADR. (FLUBLOCK QUADRIVALENT; 18Y+) (RIV4) 03/02/2020,12/03/2018 Family History Medical History Relation Name Comments Heart Disease Brother Other Brother [facility] Heart Disease Father CVA Maternal Grandfather Other Maternal Grandmother sclerod bhumika Arthritis - Rheumatoid Mother CVA Mother Allergy (Severe) Neg Hx Cancer Neg Hx Cancer - Breast Neg Hx Cancer - Skin, Melanoma Neg Hx Cancer - Skin, Non Melanoma Neg Hx Eczema Neg Hx Hemophilia Neg Hx Psoriasis Neg Hx Rashes/Skin Problems Neg Hx Relation Name Status Comments Brother Alive Father Maternal Grandfather Maternal Grandmother Mother Social History Tobacco Use [...] on file Legal Sex Male 5:21 PM [employer] Gender Identity Not on file Sexual Orientation Not on file Last Filed Vital Signs Vital Sign Reading Time Taken Comments Blood Pressure 153/83 07/27/2024 1:32 PM CDT Pulse 78 07/27/2024 1:21 PM CDT Temperature 36.1 C (96.9 F) 07/27/2024 1:21 PM CDT Respiratory Rate 18 01/11/2022 8:19 AM CDT Oxygen Saturation 92% 04/06/2024 3:01 PM [employer] Inhaled Oxygen Concentration - - Weight 117.3 kg (258 lb 9.6 oz) 07/27/2024 1:21 PM CDT Height 180.3 cm (5' 10.98 ) 07/27/2024 1:21 PM C DT Body Mass Index 36.08 07/27/2024 1:21 PM CDT Plan of Treatment Upcoming Encounters Date Type Department Care Team (Late st Contact Info) Description 10/27/2024 2:30 PM CDT Office Visit [facility] - Dermatology [address] [place] [address], [place] [address] Alice Li MD [address] [place] [address] DEPT [place] [address] Health Maintenance Due Date Last Done Comments COLOGUARD (AGES 45-75) - COLON CA SCREENING 1950 COLON MONITORING 1951 COLONOSCOPY - COLON CA SCREENING 1950 CT COLONOGRAPHY - COLON CA SCREENING 1950 Colorectal Cancer Screening 1950 FIT - COLON CA SCREENING 1950 FLEX SIG - COLON CA SCREENING 1950 MEDICARE AWV 12 MONTHS 1950 DTAP/TDAP/TD VACCINES (1 - Tdap) 1970 ZOSTER VACCINE (1 of 2) 2001 Respiratory Syncytial Virus (RSV) Vaccine Pt: or over 60 yrs (1 - Risk 60-74 years 1-dose series) 2011 PNEUMOCOCCAL VACCINE 50+ (3 of 3 - PCV20 or PCV21) 01/20/2018 01/20/2013, 10/28/2011, 09/22/2010 COVID-19 VACCINE ( season) 2023 02/07/2021, 06/13/2020, 05/04/2020 INFLUENZA VACCINE (Season Ended) 2024 03/02/2020, 12/03/2018, 01/21/2018 SCREENING FOR DIABETES 04/06/2027 , 01/28/2023, 07/13/2021, Additional history exists DEPRESSION SCREENING Completed 04/06/2024, 08/29/19 HEPATITIS C SCREENING Completed 04/06/2024 , 08/31/2021, 07/16/2012 HEPATITIS B VACCINE Aged Out No longe r eligible based on patient's age to complete this topic HIB VACCINE Aged Out No longer eligi ble based on patient's age to complete this topic HPV VACCINE Aged Out No longer eligi ble based on patient's age to complete this topic MENINGOCOCCAL (Group B) VACCINE SHARED DECISION-MAKING Aged Out No longer eligible based on patient's age to complete this topic MENINGOCOCCAL GROUPS A/C/Y/W VACCINE Aged Out No longer eligible based on patient's age to complete this topic Procedures Procedure Name Priority Date/Time Associated Diagnosis Comments COMPREHENSIVE METABOLIC PANEL Routine 04/06/2024 3:57 PM [employer] Rheumatoid arthritis with positive rheumatoid factor, involving unspecified site Rheumatoid arthritis involving multiple joints Therapeutic drug monitoring Need for hepatitis C screening test Need for hepatitis B screening test Screening for tuberculosis HEPATITIS C ANTIBODY Routine 04/06/2024 3:57 PM [employer] Rheumatoid arthritis with positive rheumatoid factor, involving unspecified site Rheumatoid arthritis involving multiple joints Therapeutic drug monitoring Need for hepatitis C screening test Need for hepatitis B screening test Screening for tuberculosis from Last 3 Months or Most Recently Relevant to Health Maintenance Results * (ABNORMAL) COMPREHENSIVE METABOLIC PANEL (04/06/2024 3:57 PM [employer] CLE[employer]) BUN 16 7 - 26 mg/dL 04/06/2024 6:10 PM [facility] Creatinine 1.15 0.71 - 1.16 mg/dL 04/06/2024 6:10 PM [facility] Sodium 140 136 - 145 mmol/L 04/06/2024 6:10 PM [facility] Potassium 3.9 3.5 - 4.5 mmol/L 04/06/2024 6:10 PM [facility] Chloride 108(H) 98 - 107 mmol/L 04/06/2024 6:10 PM [facility] CO2 23 22 - 29 mmol/L 04/06/2024 6:10 PM [facility] Glucose 95 70 - 99 mg/dL 04/06/2024 6:10 PM [facility] Calcium 8.8 8.4 - 10.2 mg/dL 04/06/2024 6:10 PM [facility] Protein Total 7.4 6.0 - 8.3 g/dL 04/06/2024 6:10 PM [facility] Albumin 3.8 3.4 - 5.0 g/dL 04/06/2024 6:10 PM [facility] Bilirubin Total 0.5 0.2 - 1.2 mg/dL 04/06/2024 6:10 PM [facility] Alkaline Phosphatase 97 40 - 150 U/L 04/06/2024 6:10 PM [facility] ALT 21 5 - 55 U/L 04/06/2024 6:10 PM [facility] AST 46(H) 5 - 34 U/L 04/06/2024 6:10 PM [facility] Anion Gap 9 6 - 16 04/06/2024 6:10 PM [facility] BUN/Creatinine Ratio 14 7 - 23 04/06/2024 6:10 PM [facility] Osmolality Calculated 291 275 - 295 mOsm/kg 04/06/2024 6:10 PM [facility] Albumin/Globulin Ratio 1.1 1.1 - 2.3 04/06/2024 6:10 PM [facility] eGFR by CKD-EPI 67(L) >=90 mL/min/1.7 3 m2 04/06/2024 6:10 PM [facility] Blood BLOOD SPECIMEN / Unknown Lab Venipuncture / Unknown 04/06/2024 3:57 PM [employer] 04/06/2024 5:16 PM [employer] Jeffrey Lovelace MD LAB - CHEMISTRY ORDERABL ES Final Result Performing Organization Address [facility]/ZIP Co de Phone Number [address] [address], [place] [phone] * HEPATITIS C ANTIBODY (04/06/2024 3:57 PM [employer] CLE[employer]ER) Hepatitis C Antibody Non-react cece Non-reac tive 04/06/2024 5:54 PM [facility] Comment:Hepatitis C Antibody screen indicates no serologic evidence of past or current infection with Hepatitis C Virus. Patients with unexplained liver disease who are immunocompromised or suspected of having acute Hepatitis C infection may benefit from Nucleic Acid Test (YVETTE) for Hepatitis C Viral RNA to confirm Hepatitis C status. Blood BLOOD SPECIMEN / Unknown Lab Venipuncture / Unknown 04/06/2024 3:57 PM [employer] CLE[employer] 04/06/2024 5:06 PM [employer] us Jeffrey Lovelace MD LAB - CHEMISTRY ORDERABL ES Final Result Performing Organization Address City/[facility]/ZIP Co de Phone Number [address] [address], [place] [phone] from Last 3 Months or Most Recently Relevant to Health Maintenance Insurance MEDICARE [facility] * Guarantor: TREVA SAM Account Type Relation to Patient Date of Phone Billing Address Personal/Family Spouse Care Teams Airport Operations Duty Manager Relationship Specialty Start Date End Date Toby Zhong MD [facility] [place] [phone] PCP - General 09/20/13 Rajani Thompson MD [address] [place] [address] Dermatology 09/27/21
--- OUTSIDE RECORDS SUMMARY | 2024-08-03 13:49 | XMS_ITS | Encounter Summary ---
Author Organization [facility] Address [address] [place] [address] Care Team Providers Care Nursing Staff Development Coordinator Name Role Phone Toby Zhong MD Primary Care Provider [phone] Rajani Thompson MD Unavailable [phone] Reason for Visit * Reason Onset Date Comments Follow-up 07/28/2024 Encounter Details Date Type Department Care Team (Late Contact Info) Description 07/28/2024 Telephone [facility] - Rheumatology [address], [place] [phone] Jeffrey Lovelace MD [address] [place] [address] Follow-up Social History Tobacco Use Types Packs/Day Years Used Date Smoking Tobacco: Never Smokeless Tobacco: Never Alcohol Use Standard Drinks/Week Comments Yes 2 (1 standard drink = 0.6 oz pur e alcohol) weekly mike PHQ-2 Answer Date Recorded Patient Health Questionnaire-2 Score 0 04/06/2024 Sex and Gender Information Value Date Recorded Sex Assigned at Not on file Legal Sex Male 5:21 PM 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 Albrecht about last CXR. Dr. Albrecht will repeat CXR and see if pt needs a tap. Will await CXR. * Telephone Encounter - Rosa Bryant LPN - 07/28/2024 11:20 AM CDT Received a voicemail from patients spouse. She called to relay the patient's pulmonary doctor info.Dr. Autumn Albrecht is his director of assessment and Vidal Brink is the VIDEOGAME DESIGNER. Their phone number is [phone] documented in this encounter Plan of Treatment Upcoming Encounters Date Type Department Care Team (Late st Contact Info) Description 10/27/2024 2:30 PM CDT Office Visit [facility] - Dermatology [address] [place] [address], [place] [phone] Alice Li MD [address] [place] [address] [place] [phone] documented as of this encounter Visit Diagnoses Not on filedocumented in this encounter Care Teams Nursing Staff Development Coordinator Relationship Specialty Start Date End Date Toby Zhong MD [address] [place] [phone] PCP - General 09/20/13 Rajani Thompson MD [address] [place] [address] Dermatology 09/27/21 documented as of this encounter
--- OUTSIDE RECORDS SUMMARY | 2024-08-03 13:49 | XMS_ITS | Data Portability ---
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 We talked about treatment options today in detail he wanted proceed with cortisone therefore under sterile conditions I injected the patient's bilateral knee joints in the office with 4 cc 0.5% bupivacaine and 20 mg of Kenalog each. The patient tolerated the procedures well. I will see him back in 3 months if necessary he would like to get his knees reinjected prior to a vacation coming up in the next few months. We did talk about the possibility of doing gel shots but for now cortisone is working well for him so he will stick with that. He voiced understanding agrees above plan will call for any further problems difficulties or questions. We also discussed the fact that total knee arthroplasty would give him much better long-term relief and take care of the osteoarthritis but he has not ready for surgical intervention quite yet. Not available 08/07/2023 14:14:19 10/20/2023 10/20/2023 the patient has moderate primary osteoarthritis right knee severe primary osteoarthritis left knee as described. Under sterile conditions at his request I injected both knee joints in the office today with 4 cc 0.5% Marcaine and 20 mg of Kenalog each. The patient tolerated the procedures well. I will see him back as needed we can do this again in 3 months if necessary voiced understanding agrees above plan call for any further problems difficulties or questions. Not available 10/20/2023 11:00:52 01/20/2024 01/20/2024 The patient has severe primary osteoarthritis left knee moderately severe on the right. At his request under sterile conditions I injected both knee joints in the office with 4 cc of 0.5% bupivacaine and 20 mg Kenalog each. The patient tolerated the procedures well. I will see him back in 3 months if necessary for cortisone if it works well for him. If he decides in 6 weeks or so that his knees are bothering him enough and cortisone today did not give him good relief we could try gel shots he will call if he decides he wants to do the gel shots. We talked about this in detail today. He voiced understanding agrees with the above plan he will call for any further problems difficulties or questions. Not available 01/20/2024 14:55:22 04/22/2024 04/22/2024 The patient has severe primary osteoarthritis left knee more moderate in the right knee. At his request under sterile conditions I injected the patient's bilateral knee joints in the office today with 4 cc of 0.5% bupivacaine and 20 mg of Kenalog each. The patient tolerated the procedures well. I will see him back in 3 months if necessary, he voiced understanding and agreed with the above plan will call for any further problems difficulties or questions. Not available 04/22/2024 11:39:26 07/16/2024 07/16/2024 The patient has severe primary osteoarthritis in the left knee more moderate changes in the right knee. At his request under sterile conditions I injected both knee joints in the office today with 4 cc 0.5% bupivacaine and 20 mg of Kenalog each. The patient tolerated both procedures well. I will see him back in 3 months if necessary he voiced understanding and agreed with the above plan will call for any further problems difficulties or questions. Not available 07/16/2024 12:26:12 Plan of Treatment Reminders Order Date Submit Date Provider Last Modified By Organization Details Last Modified Time Details Appointments Any 5 2024 10:30A DANE Queen Not available Not available Not available Lab None recorded. Referral None recorded. Procedures injection /aspirati on joint/bur sa (PROC) 2024 025 [email or web address] In-Office Order, Internal Use Only DO Not Attach Compendium DO Not Attach Compendium, Do Not Delete/merge, [id number] 07/16/2024 11:57:47 injection /aspirati on joint/bur sa (PROC) 2024 025 [email or web address] In-Office Order, Internal Use Only DO Not Attach Compendium DO Not Attach Compendium, Do Not Delete/merge, [id number] 04/22/2024 11:28:49 injection /aspirati on joint/bur sa (PROC) 2023 024 [email or web address] In-Office Order, Internal Use Only DO Not Attach Compendium DO Not Attach Compendium, Do Not Delete/merge, [id number] 01/20/2024 14:27:33 injection /aspirati on joint/bur sa (PROC) - in office procedure , administe red by provider 2023 024 [email or web address] In-Office Order, Internal Use Only DO Not Attach Compendium DO Not Attach Compendium, Do Not Delete/merge, [id number] 10/20/2023 10:46:18 injection /aspirati on joint/bur sa (PROC) 2023 024 [email or web address] In-Office Order, Internal Use Only DO Not Attach Compendium DO Not Attach Compendium, Do Not Delete/merge, [id number] 08/07/2023 14:04:02 Surgeries None recorded. Imaging XR, knee 2023 024 [email or web address] [facility] [place], [address], [place], [address], 08/07/2023 16:08:31 Medication Orders bupivacai ne HCl 0.5 % (5 mg/mL) injection solution 2024 025 [email or web address] [id number], [address], [place], [address], 07/16/2024 12:27:02 Kenalog 10 mg/mL suspensio n for injection 2024 025 [email or web address] [id number], [address] , [place], [address], 07/16/2024 12:27:02 bupivacai ne HCl 0.5 % (5 mg/mL) injection solution 2024 025 [email or web address] [id number], [address] , [place], [address], 04/22/2024 11:39:44 Kenalog 10 mg/mL suspensio n for injection 2024 025 [email or web address] [id number], [address] [place], [address], 04/22/2024 11:39:44 bupivacai ne HCl 0.5 % (5 mg/mL) injection solution 2023 024 [email or web address] [id number], [address] [place], [address], 01/20/2024 14:55:40 Kenalog 10 mg/mL suspensio n for injection 2023 024 [email or web address] [id number], [address] [place], [address], 01/20/2024 14:55:40 Marcaine (PF) 0.5 % (5 mg/mL) injection solution 2023 024 [email or web address] [id number], [address], [place], [address], 10/20/2023 12:33:01 Kenalog 10 mg/mL suspensio n for injection 2023 024 [email or web address] [id number], [address] [place], [address], 10/20/2023 12:33:01 bupivacai ne HCl 0.5 % (5 mg/mL) injection solution 2023 024 [email or web address] [id number], [address], [place], [address], 08/07/2023 16:08:31 Kenalog 10 mg/mL suspensio n for injection 2023 024 [email or web address] [facility] [id number], [address], [place], [address], 08/07/2023 16:08:31 Patient TargetsNo targets recorded. Patient InstructionsNo instructions recorded. Reason for Referral None Reported. Results Created Date Observation Date Name Description Value Unit Range Abnormal Flag Note LastModifiedBy Organization Detail LastModifiedTime 08/07/19 24 XR, knee No observ ation record ed. [email or web address] [facility] [place] [address] [facility] [address], [place], [address], 08/07/2023 14:15:15 Result Notes None recorded. Problems Name Problem SNOMED Code Status Onset Date Resolution Date Notes Provider Name and Address Organization Details Recorded Time Osteoarthr itis 279102879 Active 2021 Not Available [facility] 3 00:39:50 Pain of left knee joint 0269805853342 07 Active 2021 Not Available [facility] 3 00:39:50 Bilateral osteoarthr itis of knees 1484910611464 07 Active 2022 TITI Rockwell, [employer] 3 15:26:02 Pain of bilateral knee joints 8805121731822 04 Active 2023 ALAYNA Toussaint [employer] [facility] [employer] 4 10:41:31 Problem Notes None recorded. Procedures Surgical History Date Name Laterality Status Provider Name and Address Organization Details Recorded Time 07/01/19 24 cholecystectomy completed Fartun Ball [employer] 08/07/2023 13:54:43 procedure on carotid body completed Not Available [facility] 05/23/2022 00:36:36 Carpal tunnel surgery completed Not Available [facility] 05/23/2022 00:36:36 Imaging Results Imaging Date Name Status LastModified by Organiz ation Details LastModified Time 08/07/2023 XR, knee completed [email or web address] [facility] [place] [address], [place], [address], 08/07/2023 14:15:15 Procedure Notes None recorded. Medical Equipment None Reported. Allergies Allergen ID Allergen Name Allergen Category Reaction Reaction Severity Criticality Documentation Date Start Date Code Code System Note Provider Name and Address Organization Details Recorded Time 74079 codeine medicatio n Not available Not available Not available 05/23/2022 2670 RxNorm Not Available [facility] 00:42:45 Medications Name Sig Start Date Stop Date Status Note LastModified by Organization Details LastModified Time silver sulfadiazin e 1 % topical cream APPLY A 1.5 MM THICKNESS TOPICALLY TWICE DAILY 08/06 completed Not Available Not Available Not Available doxycycline hyclate 100 mg capsule TAKE 1 CAPSULE BY MOUTH TWICE DAILY FOR 5 DAYS 08/06 completed Not Available Not Available Not Available benzonatate 200 mg capsule active Not Available Not Available Not Available hydrocodone 5 mg-acetamin ophen 325 mg tablet TAKE 1 TABLET BY MOUTH EVERY 4 HOURS NEEDED FOR PAIN active Not Available Not Available No t Available bupivacaine HCl 0.5 % (5 mg/mL) injection solution Take 40 mg by injection route. 2024 active Not Available Not Available Not Avai lable prednisone 20 mg tablet TAKE 1 TABLET BY MOUTH TWICE DAILY FOR 5 DAYS active Not Available Not Available No t Available propranolol ER 60 mg capsule,24 hr,extended release TAKE 1 CAPSULE BY MOUTH EVERY DAY FOR TREMOR active Not Available Not Available No t Available triamcinolo ne acetonide 0.1 % topical cream APPLY 1 APPLICATI ON TOPICALLY FOUR TIMES A DAY active Not Available Not Available No t Available terbinafine HCl 250 mg tablet TAKE 1 TABLET BY MOUTH ONCE DAILY GET LABS BEFORE REFILL active Not Available Not Available No t Available methotrexat e sodium 2.5 mg tablet TAKE 8 (EIGHT) TABLETS BY MOUTH EVERY 7 DAYS FOR 60 DAYS active Not Available Not Available No t Available Kenalog 10 mg/mL suspension for injection Take 40 mg by injection route. 2024 active [facility]: 0003- 0494- 20 Not Available Not Available Not Available econazole nitrate 1 % topical cream APPLY TO RASH ON FEET 1-2 TIMES DAILY. 30 DAYS SUPPLY. active Not Available Not Available No t Available cephalexin 500 mg capsule TAKE 1 CAPSULE BY MOUTH EVERY 8 HOURS FOR 7 DAYS active Not Available Not Available No t Available triamcinolo ne acetonide 0.1 % topical ointment active Not Available Not Available Not Available folic acid 1 mg tablet TAKE 1 TABLET BY MOUTH EVERY DAY active Not Available Not Available No t Available montelukast 10 mg tablet TAKE 1 TABLET BY MOUTH EVERY DAY active Not Available Not Available No t Available methylpredn isolone 4 mg tablets in a dose pack TAKE 6 TABLETS ON DAY 1 DIRECTED ON PACKAGE AND DECREASE BY 1 TAB EACH DAY FOR A TOTAL OF 6 DAYS active Not Available Not Available No t Available ondansetron 4 mg disintegrat ing tablet DISSOLVE 1 TABLET BY MOUTH EVERY 8 HOURS NEEDED FOR NAUSEA AND VOMITING 08/06 completed Not Available Not Available Not Available cefdinir 300 mg capsule 08/06 completed Not Available Not Available Not Available diazepam 5 mg tablet 5 MG ORALLY EVERY 8 HOURS NEEDED FOR MUSCLE SPASM active Not Available Not Available No t Available amoxicillin 875 mg-potassiu m clavulanate 125 mg tablet TAKE 1 TABLET BY MOUTH EVERY 12 HOURS active Not Available Not Available No t Available ezetimibe 10 mg tablet TAKE 1 TABLET BY MOUTH DAILY AT BEDTIME active Not Available Not Available No t Available Marcaine (PF) 0.5 % (5 mg/mL) injection solution Take 40 mg by injection route. 2023 active Not Available Not Available Not Avai lable tadalafil 5 mg tablet TAKE 1 TABLET BY MOUTH DAILY AT BEDTIME active Not Available Not Available No t Available folic acid 2021 active Not Available Not Available Not Avai lable Singulair 2021 active Not Available Not Available Not Avai lable Ak-Metholon e 2021 active Not Available Not Available Not Avai lable tadalafil 2021 active Not Available Not Available Not Avai lable CoQ-10 active Not Available Not Availa ble Not Available pitavastati n calcium 4 mg tablet TAKE 1 TABLET BY MOUTH EVERY DAY IN THE EVENING active Not Available Not Available No t Available Livalo 2021 active Not Available Not Available Not Avai lable ropivacaine (PF) 5 mg/mL (0.5 %) injection solution in office 2022 active Not Available Not Available Not Avai lable Xarelto 20 mg tablet TAKE 1 TABLET BY MOUTH DAILY AT BEDTIME active Not Available Not Available No t Available Trelegy Ellipta 100 mcg-62.5 mcg-25 mcg powder for inhalation INHALE 1 PUFF BY MOUTH DAILY FOR 1 MONTH active Not Available Not Available No t Available albuterol 90 mcg-budeson jay 80 mcg/actuati on HFA aerosol inhaler Inhale by inhalatio n route. active Not Available Not Available No t Available Vitals Date Recorded Body height Body mass index (BMI) Body weight Provider Name and Address Organization Details Last Updated DateTime 08/07/2023 175.26 cm 39.9 kg/m2 425390.94 g Fartun Ball [employer] 08/07/2023 13:52:50 Date Recorded Body height Body mass index (BMI) Body weight Provider Name and Address Organization Details Last Updated DateTime 10/20/2023 180.34 cm 38.1 kg/m2 640613.72 g [facility] 10/20/2023 10:40:52 Date Recorded Body height Body mass index (BMI) Body weight Provider Name and Address Organization Details Last Updated DateTime 01/20/2024 180.34 cm 38.4 kg/m2 606538.9 g [facility] 01/20/2024 14:24:18 Date Recorded Body height Body mass index (BMI) Body weight Provider Name and Address Organization Details Last Updated DateTime 04/22/2024 180.34 cm 36.3 kg/m2 234426.02 g [facility] 04/22/2024 11:27:20 Date Recorded Body height Body mass index (BMI) Body weight Provider Name and Address Organization Details Last Updated DateTime 07/16/2024 180.34 cm 37 kg/m2 676066.98 g [employer] 07/16/2024 11:55:55 Social History Question Answer Notes LastModified by Organizat [employer] Details LastModified Time Tobacco Smoking Status Never Smoker Not Available [facility] 05/23/2022 00:36:32 What Was The Date Of Your Most Recent Tobacco Screening? 08/07/2023 ilda Information not available 08/07/2023 Sex: Unknown Functional Status Question Answer Note LastModified by Organizat [employer] Details LastModified Time What is your level of alcohol consumption? Occasional [id number] Information not available 05/23/2022 Mental Status None recorded. Family History Relationship Description Onset Age of this Age Resolved Age Notes LastModified by Organization Details LastModified Time Mother Heart disease [id number] Not available 05/23/2022 00:36:42 Mother Hypertensive disorder [id number] Not available 05/23/2022 00:36:42 Mother Diabetes mellitus [id number] Not available 05/23/2022 00:36:42 Father Heart disease [id number] Not available 05/23/2022 00:36:42 Father Kidney disease [id number] Not available 05/23/2022 00:36:42 Maternal Grandmother Family history of stroke [id number] Not available 05/23/2022 00:36:42 Medical History Condition Response BLINDNESS N KIDNEY STONES N MRSA N CARPAL TUNNEL SYNDROME N LUNG DISEASE/DISORDER Y HISTORY OF DRUG ABUSE N RADIATION / CHEMOTHERAPY N COPD N SPORTS INJURY N ANKLE PAIN N BLOOD DISEASES N SCHIZOPHRENIA N SHINGLES N SHOULDER PAIN N DEPRESSION (INCLUDING POST ) N BOWEL PROBLEMS N STROKE/TIA Y ULCERS N KNEE PAIN N BENIGN PROSTATIC HYPERPLASIA N OBESITY N GERD/NAUSEA N ANEURYSM N URINARY/BLADDER/KIDNEY PROBLEMS Y CORONARY ARTERY DISEASE (CAD) Y ADDICTION CONCERNS N USE OF BLOOD THINNERS Y SKIN PROBLEMS Y EMPHYSEMA N MUSCLE,JOINT OR BONE PROBLEMS N DVT N STOMACH ULCERS N BLOOD CLOTS Y USE OF NSAIDS N CONCUSSION OR SPINAL TRAUMA N NEUROPATHY N AIDS/HIV N FRACTURES N HYPERTENSION N ELBOW PAIN N TOURETTE'S N Metal allergy N ANXIETY DISORDER N BLOOD TRANSFUSION N ANEMIA/BLOOD DISORDER N BIPOLAR DISORDER N BRONCHITIS N OSTEOARTHRITIS N TUBERCULOSIS N FOOT PROBLEM N HEART VALVE DISORDERS N ALLERGIES/HAYFEVER N SOFT TISSUE INJURY N INFECTIOUS DISEASE N HEART ARRHYTHMIA N INSOMNIA N HIGH CHOLESTEROL / HYPERLIPIDEMIA N RHEUMATOID ARTHRITIS N EDEMA N CHRONIC PAIN SYNDROME N CAROTID BLOCKAGE N BACK / NECK PROBLEMS N HAVE YOU BEEN HOSPITALIZED OR SEEN IN [facility] ER IN THE PAST YEAR ? N BURSITIS N HERNIATED DISC N DIALYSIS N FIBROMYALGIA N OSTEOPOROSIS N ARTHRITIS Y NO SIGNIFICANT PAST MEDICAL HISTORY N PERIPHERAL NEUROPATHY N DIABETES, TYPE N HEARTBURN / REFLUX N HEPATITIS / LIVER DISEASE N GOUT N ALZHEIMER'S DISEASE N SLEEP DISORDER N HERPES N HEADACHES/MIGRAINES N SEIZURES/EPILEPSY N VASCULAR DISEASE Y Blood Disorder N HIP PAIN N DIZZINESS N HEAD TRAUMA OR INJURY N HEART DISEASE/HEART PROBLEMS N MULTIPLE SCLEROSIS N CANCER: SPECIFY N CARDIAC ARRHYTHMIA N ANESTHESIA COMPLICATIONS N ATRIAL FIBRILLATION N AUTOIMMUNE DISEASE N Past Encounters Encounter ID Performer Location Encounter Start Date Encounter Closed Date Diagnosis/Indication Diagnosis SNOMED-CT Code Diagnosis ICD10 Code Diagnosis Note [id number] Venu Braxton MD [facility] [place] [address] [facility] [address] [place], [place] [address] 07/13/2021 00:00:00 07/13/2021 15:52:19 [id number] Venu Braxton MD [facility] [place] [address] [facility] [address] [place] [address] 10/19/2021 00:00:00 10/19/2021 14:08:03 [id number] Venu Braxton MD [facility] [place] [address] [facility] [address] [place] [address] 12/19/2021 00:00:00 12/19/2021 14:10:29 [id number] Venu Braxton MD [facility] [place] [address] [facility] [address] [place] [address] 08/07/2022 15:22:03 08/08/2022 11:58:32 Bilateral osteoarthritis of knees 9435006622 20201 M17.0 [id number] Venu Braxton MD [facility] [place] [address] [facility] [address] [place] [address] 11/13/2022 13:43:45 11/13/2022 14:07:35 Bilateral osteoarthritis of knees 0328013014 23193 M17.0 [id number] Venu Braxton MD [facility] [place] [address] [place] [address] 02/07/2023 14:51:55 02/07/2023 16:04:07 Bilateral osteoarthritis of knees 2085430210 26833 M17.0 [id number] Venu Braxton MD [facility] [place] [address] [place] [address] 05/08/2023 13:48:10 05/08/2023 14:42:28 Bilateral osteoarthritis of knees 7143451306 29794 M17.0 [id number] Chuckie Adams MD [facility] [place] [address] [place] [address] 08/07/2023 13:24:57 08/07/2023 14:14:37 Bilateral osteoarthritis of knees 1078489410 54337 M17.0 [id number] Chuckie Adams MD [facility] [place] [address] [place] [address] 10/20/2023 10:36:51 10/20/2023 10:54:58 Bilateral osteoarthritis of knees 7856086858 92331 M17.0 Pain of bi lateral knee joints 7026370597 38690 M25.561 M25.956 [id number] Chuckie Adams MD [facility] [place] [address] [place] [address] 01/20/2024 14:18:47 01/20/2024 14:41:25 Bilateral osteoarthritis of knees 5465681516 22231 M17.0 Pain of bi lateral knee joints 5156315663 75174 M25.561 M25.814 [id number] Chuckie Adams MD [facility] [place] [address] [place] [address] 04/22/2024 11:25:25 04/22/2024 11:36:14 Bilateral osteoarthritis of knees 5919995357 09429 M17.0 Pain of bi lateral knee joints 6900072923 53680 M25.561 M25.903 [id number] Chuckie Adams MD [facility] [place] [address] [place] [address] 07/16/2024 11:48:34 07/16/2024 12:25:40 Bilateral osteoarthritis of knees 1082418610 25097 M17.0 Pain of bi lateral knee joints 3797216793 15723 M25.561 M25.562 Health Concerns Section Related Observation LastModified by Organization Detai ls LastModified Time None Recorded Concern Status LastModified by Organization Details LastModified Time None Recorded Advance Directives Directive None Recorded Payers Encounter Date Sequence Insurance Name Policy Number Policy Jones Covered Member ID Jones Member ID Guarantor Name 08/07/2023 1 [place] Hemal L Wiemers [id number] Hemal Wiemers 08/07/2023 2 [place] 105 Melanie A Wiemers [id number] Hemal Wiemers 10/20/2023 1 [place] Hemal L Wiemers [id number] Hemal Wiemers 10/20/2023 2 [place] 105 Melanie A Wiemers [id number] Hemal Wiemers 01/20/2024 1 [place] Hemal L Wiemers [id number] Hemal Wiemers 01/20/2024 2 [place] 105 Melanie A Wiemers [id number] Hemla Wiemers 04/22/2024 1 [place] Hemal L Wiemers [id number] Hemal Wiemers 04/22/2024 2 [place] 105 Melanie A Wiemers [id number] Hemal Wiemers 07/16/2024 1 [place] Hemal L Wiemers [id number] Hemal Wiemers 07/16/2024 2 [place] 105 Melanie A Wiemers [id number] Hemal Wiemers Notes Date Note Type Note Provider Name and Address Organization Details Recorded Time 08/07/2023 text/html patient returns with bilateral knee pain he has essentially ibgv-[id number] changes of the medial compartment left knee more moderate on the right with some joint space remaining. The patellofemoral articulations also show significant narrowing small hypertrophic changes. It has been more than a year since his last x-rays we will get new x-rays today comes in for cortisone injections both knees he states they gave him good relief for about 3 months at a time. He is trying to put off total knee arthroplasty for now. He has some vacations planned for this year and is on chronic blood thinners he can not take oral anti-inflammatory medications so he or lies on the cortisone injections. Denies any new symptoms no new trauma or injury of either knee. Left knee hurts worse than the right.a new past medical history sheet was reviewed and signed on the intake sheet of today's date drug allergies current medications family social history previous surgical history 10 point review of systems was reviewed and discussed in detail today with the patient. DANE Bennett [address], [place], [address], [employer] 08/07/2023 14:15:37 10/20/2023 text/html The patient retu rns we did cortisone injections both knees about 2-1/2 months ago he comes in a little early because he is going on a trip to [place] and would like his knees feeling as good as possible for doing lots of walking. The patient has moderate primary osteoarthritis right knee, severe primary osteoarthritis left knee with artu-yq-yqnp changes in the medial compartment. There is 1-2 mm joint space remaining in the medial compartment of the right knee. Lateral compartments are well-maintained mild varus deformity is noted left worse than right. There is significant narrowing of the patellofemoral articulation as well with small marginal osteophyte changes noted around the patella. He comes in today requesting repeat cortisone injections both knees. Denies any new problems with either knee. DANE Bennett [address], [place], [address], [employer] 10/20/2023 11:01:05 01/20/2024 text/html Patient returns he is 73 years old. 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 Denies any new problems with either knee it has been 3 months since his last cortisone injections he would like to have the repeat injections today they typically worked well for him. We have discussed the possibility of doing gel shots we can see if we could do these in the future if the cortisone does not give him good long-term relief. Previous x-rays show moderate primary osteoarthritis in the right knee more severe primary osteoarthritis of the left knee. Nlpf-ji-[id number] changes noted in the medial compartment of the left knee. About a mm is remaining in the medial compartment of the right knee. He has mild varus deformities noted left worse than right and significant narrowing of the patellofemoral articulations with small marginal osteophytes noted around the bilateral patella. DANE Bennett [address], [place], [address], [employer] 01/20/2024 14:55:36 04/22/2024 text/html The patient retu rns for injections both knees. He has moderate primary osteoarthritis of the right knee severe in the left. The left knee has xxxm-fv-jfsj changes in the medial compartment right knee is narrowed in the medial compartment bilateral patellofemoral articulation show moderately severe narrowing and sclerotic changes as well. The shots of cortisone gave him excellent relief last time. He has mild varus deformities of both knees right worse than left, he is not interested in total knee arthroplasty. He is dealing with other medical issues and gets by with conservative measures for now with his knees. He would like both knees injected again today. Has no new trauma or injury no new symptoms or complaints with either knee. DANE Bennett [address], [place], [address], [employer] 04/22/2024 11:39:41 07/16/2024 text/html Patient returns for bilateral knee injections. He comes in every 3 months for cortisone he has severe primary osteoarthritis left knee more moderate in the right knee. He has sfkh-co-uztq changes in medial compartment of the left knee right knee is narrowed in the bilateral patellofemoral articulation show moderately severe narrowing and sclerotic changes as well. The shots gave him good relief for 3 months at a time recently his pain has started to flare up about a 5 on a scale of 1-10 he would like both knees injected again today denies any new symptoms in either knee. DANE Bennett [address] [place] [address], [facility] [address], [place], [address], [place] [facility] [place] [employer] 07/16/2024 12:26:58
--- OUTSIDE RECORDS SUMMARY | 2024-08-03 13:49 | XMS_ITS | Encounter Summary ---
Author Organization [facility] Health Address [address] [place] [address] Care Team Providers Care Sugar Reprocess Operator Head Name Role Phone Toby Zhong MD Primary Care Provider [phone]- [phone] Rajani Thompson MD Unavailable [phone] Reason for Visit * Reason Onset Date Comments LABS ONLY 04/30/2023 Encounter Details Date Type Department Care Team (Late st Contact Info) Description 04/30/2023 Telephone [facility] - Centralized Scheduling [address] [place] [address] Jeffrey Lovelace MD [address] [place] [address] LABS ONLY Social History Tobacco Use Types Packs/Day Years Used Date Smoking Tobacco: Never Smokeless Tobacco: Never Alcohol Use Standard Drinks/Week Comments Yes 2 (1 standard drink = 0.6 oz pur e alcohol) weekly vincentey PHQ-2 Answer Date Recorded PHQ2 TOTAL SCORE 0 08/28/2021 Sex and Gender Information Value Date Recorded Sex Assigned at Not on file Legal Sex Male 5:21 PM PICKLER HELPER Gender Identity Not on file Sexual Orientation Not on file documented as of this encounter Miscellaneous Notes * Telephone Encounter - Odessa Cunningham RN - 04/30/2023 11:31 AM CST Images from the original note were not included. Denise Toure Clinical Staff RA ?? 04/30/23 ??9:45 AM Pt is asking for DR Kimble to call once she received pts lab orders . Pt's spouse called again asking if labs were received from [facility]. Left VM for spouse, labs forwarded to MD. LER HELPER documented in this encounter Plan of Treatment Upcoming Encounters Date Type Department Care Team (Late st Contact Info) Description 10/27/2024 2:30 PM CDT Office Visit [facility] - Dermatology [address] [place] [address], [place] [address] Alice Li MD [address] [place] [address] [place] [address] documented as of this encounter Visit Diagnoses Not on filedocumented in this encounter Care Teams Sugar Reprocess Operator Head Relationship Specialty Start Date End Date Toby Zhong MD [facility] [place] [phone] PCP - General 09/20/13 Rajani Thompson MD [facility] [place] [address] Dermatology 09/27/21 documented as of this encounter
--- OUTSIDE RECORDS SUMMARY | 2024-08-03 13:49 | XMS_ITS | Encounter Summary ---
Author Organization [facility] Health Address [address] [place] [address] Care Team Providers Care Db2 Developer Name Role Phone Toby Zhong MD Primary Care Provider [phone]- [phone] Rajani Thompson MD Unavailable [phone] Reason for Visit * Reason Onset Date Comments MEDICATION REFILL 07/01/2019 Encounter Details Date Type Department Care Team (Late st Contact Info) Description 07/01/2019 Refill [facility] [address] [place] [address] Martin Nunez MD [address] [place] [address] MEDICATION REFILL Social History Tobacco Use Types Packs/Day Years Used Date Smoking Tobacco: Never Smokeless Tobacco: Never Alcohol Use Standard Drinks/Week Comments Yes 0 (1 standard drink = 0.6 oz pur e alcohol) Sex and Gender Information Value Date Recorded Sex Assigned at Not on file Legal Sex Male 5:[address]PERATOR Gender Identity Not on file Sexual Orientation Not on file documented as of this encounter Miscellaneous Notes * Telephone Encounter - Lisa Kuhn - 07/01/2019 8:33 AM CDT Refill Request Hemal Ying LEXY 2.3.[id number] Allergies: Allergies Allergen Reactions ??? Fluoxetine Other dizziness ??? Codeine Other headache Pended Medication Order: Requested Prescriptions Pending Prescriptions Disp Refills ??? sulfaSALAzine EC (AZULFIDINE ENTAB) 500 MG tablet 120 tablet 3 Sig: Take 2 tablets by mouth 2 times daily documented in this encounter Plan of Treatment Upcoming Encounters Date Type Department Care Team (Late st Contact Info) Description 10/27/2024 2:30 PM CDT Office Visit [facility] - Dermatology [address] [place] [address], [facility] [place] [address] Alice Li MD [address] [place] [address] [place] [address] documented as of this encounter Visit Diagnoses Not on filedocumented in this encounter Care Teams Db2 Developer Relationship Specialty Start Date End Date Toby Zhong MD [address] [place] [phone] PCP - General 09/20/13 Rajani Thompson MD [address] [place] [address] Dermatology 09/27/21 documented as of this encounter
== END 2024-08-03 13:28 | disposition home or self-care (01) ==
PROVIDERS: PCP Family Medicine; Visit Provider Internal Medicine Critical Care Medicine
DX: J81.0 Acute pulmonary edema (principal); J90 Pleural effusion, not elsewhere classified
CPT/HCPCS: 71046

== ENCOUNTER 2024-11-08 11:51 | Outpatient (CLI) | payer MEDICARE, BC, SELFPAY ==
--- OUTSIDE RECORDS SUMMARY | 2024-11-08 13:01 | XMS_ITS | Clinical Summary ---
Author Organization [facility] Address [address] [place] [address] Care Team Providers Care Sand Polisher Name Role Phone Toby Zhong MD Primary Care Provider [phone] Rajani Thompson MD Unavailable [phone] Source Comments [facility],non-owned Affiliates and Associated Physician Practices is amultiple site organization consisting of ambulatory clinics and hospital sitesin [place], [place], [place] and [place]. This disclosure is being madepursuant to the Care Everywhere program and may not contain all information available regarding this patient. 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 therapy 08/24/2013 03/06/2021 Hx of completed stroke 08/24/201303/06 Other specified abnormal imm unological findings in serum 04/20/2013 03/06/2021 Chronic steroid use 04/20/2013 03/06/20 21 Encounters Date Type Department Care Team Description 10/26/2024 Travel 08/17/2024 Telephone [facility] - Rheumatology [facility] [facility], [facility] [place] [phone] Jeffrey Lovelace MD Update from Last 3 Months Immunizations Immunization Administration [...] on file Legal Sex Male 5:21 PM OPERATING ROOM NURSE Gender Identity Not on file Sexual Orientation Not on file Last Filed Vital Signs Vital Sign Reading Time Taken Comments Blood Pressure 153/83 07/27/2024 1:32 PM CDT Pulse 78 07/27/2024 1:21 PM CDT Temperature 36.1 C (96.9 F) 07/27/2024 1:21 PM CDT Respiratory Rate 18 01/11/2022 8:19 AM CDT Oxygen Saturation 92% 04/06/2024 3:01 PM OPERATING ROOM NURSE Inhaled Oxygen Concentration - - Weight 117.3 kg (258 lb 9.6 oz) 07/27/2024 1:21 PM CDT Height 180.3 cm (5' 10.98) 07/27/2024 1:21 PM C DT Body Mass Index 36.08 07/27/2024 1:21 PM CDT Plan of Treatment Upcoming Encounters Date Type Department Care Team (Late st Contact Info) Description 11/16/2024 1:30 PM CDT Office Visit [facility] - Rheumatology [address] [place] [address], [place] [address] Corina Merida MD [address] [place] [address] [place] [address] 03/02/2025 2:30 PM OPERATING ROOM NURSE Office Visit [facility] - Dermatology [address] [place] [phone] Alice Li MD [address] [place], [place] [address] [address] Health Maintenance Due Date Last Done Comments [...] PCV21) 01/20/2018 01/20/2013, 10/28/2011, 09/22/2010 COVID-19 VACCINE (4 - season) 2023 02/07/2021, 06/13/2020, 05/04/2020 INFLUENZA VACCINE (#1) 2024 0, 12/03/2018, 01/21/2018 SCREENING FOR DIABETES 04/06/2027 5, 01/28/2023, 07/13/2021, Additional history exists DEPRESSION SCREENING [...] COMPREHENSIVE METABOLIC PANEL Routine 04/06/2024 3:57 PM OPERATING ROOM NURSE Rheumatoid arthritis with positive rheumatoid factor, involving unspecified site Rheumatoid arthritis involving multiple joints Therapeutic drug monitoring Need for hepatitis C screening test Need for hepatitis B screening test Screening for tuberculosis HEPATITIS C ANTIBODY Routine 04/06/2024 3:57 PM OPERATING ROOM NURSE Rheumatoid arthritis with positive rheumatoid factor, involving unspecified site Rheumatoid arthritis involving multiple joints Therapeutic drug monitoring Need for hepatitis C screening test Need for hepatitis B screening test Screening for tuberculosis from Last 3 Months or Most Recently Relevant to Health Maintenance Results * (ABNORMAL) COMPREHENSIVE METABOLIC PANEL (04/06/2024 3:57 PM OPERATING ROOM NURSE) BUN 16 7 - 26 mg/dL 04/06/2024 6:10 PM OPERATING ROOM NURSE [facility] Creatinine 1.15 0.71 - 1.16 mg/dL 04/06/2024 6:10 PM [facility] Sodium 140 136 - 145 mmol/L 04/06/2024 6:10 PM [facility] Potassium 3.9 3.5 - 4.5 mmol/L 04/06/2024 6:10 PM [facility] Chloride 108(H) 98 - 107 mmol/L 04/06/2024 6:10 PM [facility] CO2 23 22 - 29 mmol/L 04/06/2024 6:10 PM [facility] Glucose 95 70 - 99 mg/dL 04/06/2024 6:10 PM [facility] Calcium 8.8 8.4 - 10.2 mg/dL 04/06/2024 6:10 PM [facility] Protein Total 7.4 6.0 - 8.3 g/dL 04/06/2024 6:10 PM [facility] Albumin 3.8 3.4 - 5.0 g/dL 04/06/2024 6:10 PM [facility] Bilirubin Total 0.5 0.2 - 1.2 mg/dL 04/06/2024 6:10 PM [facility] Alkaline Phosphatase 97 40 - 150 U/L 04/06/2024 6:10 PM [facility] ALT 21 5 - 55 U/L 04/06/2024 6:10 PM [facility] AST 46(H) 5 - 34 U/L 04/06/2024 6:10 PM [facility] Anion Gap 9 6 - 16 04/06/2024 6:10 PM [facility] BUN/Creatinine Ratio 14 7 - 23 04/06/2024 6:10 PM [facility] Osmolality Calculated 291 275 - 295 mOsm/kg 04/06/2024 6:10 PM [facility] Albumin/Globulin Ratio 1.1 1.1 - 2.3 04/06/2024 6:10 PM [facility] eGFR by CKD-EPI 67(L) >=90 mL/min/1.7 3 m2 04/06/2024 6:10 PM [facility] Blood BLOOD SPECIMEN / Unknown Lab Venipuncture / Unknown 04/06/2024 3:57 PM OPERATING ROOM NURSE 04/06/2024 5:16 PM OPERATING ROOM NURSE Jeffrey Lovelace MD LAB - CHEMISTRY ORDERABL ES Final Result Performing Organization Address [facility] Co de Phone Number [address] [address], [facility] [phone] * HEPATITIS C ANTIBODY (04/06/2024 3:57 PM OPERATING ROOM NURSE) Hepatitis C Antibody Non-react cece Non-reac tive 04/06/2024 5:54 PM OPERATING ROOM NURSE [facility] Comment:Hepatitis C Antibody screen indicates no serologic evidence of past or current infection with Hepatitis C Virus. Patients with unexplained liver disease who are immunocompromised or suspected of having acute Hepatitis C infection may benefit from Nucleic Acid Test (YVETTE) for Hepatitis C Viral RNA to confirm Hepatitis C status. Blood BLOOD SPECIMEN / Unknown Lab Venipuncture / Unknown 04/06/2024 3:57 PM OPERATING ROOM NURSE 04/06/2024 5:06 PM OPERATING ROOM NURSE Jeffrey Lovelace MD LAB - CHEMISTRY ORDERABL ES Final Result Performing Organization Address [facility] Co de Phone Number [address] [address], [facility] [phone] from Last 3 Months or Most Recently Relevant to Health Maintenance Insurance MEDICARE [facility] * Guarantor: TREVA SAM Account Type Relation to Patient Date of Phone Billing Address Personal/Family Spouse Care Teams Sand Polisher Relationship Specialty Start Date End Date Toby Zhong MD [facility] [place] [address] PCP - General 09/20/13 Rajani Thompson MD [address] [place] [address] Dermatology 09/27/21
--- OUTSIDE RECORDS SUMMARY | 2024-11-08 13:01 | XMS_ITS | Encounter Summary ---
Author Organization [facility] Health Address [address] [place] [address] Care Team Providers Care Steam Crane Operator Name Role Phone Toby Zhong MD Primary Care Provider [phone]- [phone] Rajani Thompson MD Unavailable [phone] Reason for Visit * Reason Onset Date Comments LABS ONLY 04/30/2023 Encounter Details Date Type Department Care Team (Late st Contact Info) Description 04/30/2023 Telephone [facility] - Centralized Scheduling [address] [place] [address] Jeffrey Lovelace MD [address] [place] [address] LABS ONLY Social History Tobacco [...] on file Legal Sex Male 5:21 PM ANALYSIS OR RESEARCH SAFETY INSPECTOR Gender Identity Not on file Sexual Orientation Not on file documented as of this encounter Miscellaneous Notes * Telephone Encounter - Odessa Cunningham RN - 04/30/2023 11:31 AM CST Images from the original note were not included. Denise Toure to Rheum Clinical Staff RA ?? 04/30/23 ??9:45 AM Pt is asking for DR Kimble to call once she received pts lab orders . Pt's spouse called again asking if labs were received from [facility]. Left VM for spouse, labs forwarded to MD. YSIS OR RESEARCH SAFETY INSPECTOR documented in this encounter Plan of Treatment Upcoming Encounters Date Type Department Care Team (Late st Contact Info) Description 11/16/2024 1:30 PM CDT Office Visit [facility] - Rheumatology [address] [place] [address] [place] [address] Corina Merida MD [facility] [place] [address] 03/02/2025 2:30 PM ANALYSIS OR RESEARCH SAFETY INSPECTOR Office Visit [facility] - Dermatology [address] [place] [address], [place] [address] Alice Li MD [address] [place] [address] [place] [address] documented as of this encounter Visit Diagnoses Not on filedocumented in this encounter Care Teams Steam Crane Operator Relationship Specialty Start Date End Date Toby Zhong MD [facility] [place] [phone] PCP - General 09/20/13 Rajani Thompson MD [address] [place] [address] Dermatology 09/27/21 documented as of this encounter
--- OUTSIDE RECORDS SUMMARY | 2024-11-08 13:01 | XMS_ITS | Encounter Summary ---
Author Organization [facility] Health Address [address] [facility] [place] [address] Care Team Providers Care Mine Administrator Supervisor Name Role Phone Toby Zhong MD Primary Care Provider [phone]- [phone] Rajani Thompson MD Unavailable [phone] Reason for Visit * Reason Onset Date Comments Returned Call 05/06/2024 Encounter Details Date Type Department Care Team (Late st Contact Info) Description 05/06/2024 Telephone [facility] - Dermatology [address] [facility], [facility] [place] [address] Rubén Maloney MD [address] [facility] [place] [address] Returned Call Social History Tobacco [...] on file Legal Sex Male 5:21 PM MANUFACTURING CLERK Gender Identity Not on file Sexual Orientation Not on file documented as of this encounter Miscellaneous Notes * Telephone Encounter - Rubén Maloney MD - 05/06/2024 12:15 PM CST Pt called, see dermpath result note FACTURING CLERK * Telephone Encounter - Maude Li - 05/06/2024 10:58 AM CST Pt keeps missing all from office with CC number, no notes on what we need to do or direct Please advise caller FACTURING CLERK documented in this encounter Plan of Treatment Upcoming Encounters Date Type Department Care Team (Late st Contact Info) Description 11/16/2024 1:30 PM CDT [facility] [address] [place] [address], [place] [address] Corina Merida MD [address] [place] [address] [place] [address] 03/02/2025 2:30 PM MANUFACTURING CLERK Office Visit [facility] - Dermatology [address] [place] [address], [place] [address] Alice Li MD [address] [place] [address] [place] [address] documented as of this encounter Visit Diagnoses Not on filedocumented in this encounter Care Teams Mine Administrator Supervisor Relationship Specialty Start Date End Date Toby Zhong MD [address] [place] [phone] PCP - General 09/20/13 Rajani Thompson MD [address] [place] [address] Dermatology 09/27/21 documented as of this encounter
--- OUTSIDE RECORDS SUMMARY | 2024-11-08 13:01 | XMS_ITS | Encounter Summary ---
Author Organization [facility] Health Address [address] [facility] [place] [address] Care Team Providers Care Continuity Person Name Role Phone Toby Zhong MD Primary Care Provider [phone]- [phone] Rajani Thompson MD Unavailable [phone] Reason for Visit * Reason Onset Date Comments MEDICATION REFILL 07/01/2019 Encounter Details Date Type Department Care Team (Late st Contact Info) Description 07/01/2019 Refill [facility] [address] [place] [address] Martin Nunez MD [address] [place] [address] MEDICATION REFILL Social History Tobacco Use Types Packs/Day Years Used Date Smoking Tobacco: Never Smokeless Tobacco: Never Alcohol Use Standard Drinks/Week Comments Yes 0 (1 standard drink = 0.6 oz pur e alcohol) Sex and Gender Information Value Date Recorded Sex Assigned at Not on file Legal Sex Male 5:21 PM MEDICINE ASSISTANT Gender Identity Not on file Sexual Orientation [...] Description 11/16/2024 1:30 PM CDT Office Visit [facility] - Rheumatology [address] [place] [address] [place] [address] Corina Merida MD [address] [place] [address] [place] [address] 03/02/2025 2:30 PM MEDICINE ASSISTANT Office Visit [facility] - Dermatology [address] [place] [address] [place] [phone] Alice Li MD [address] [place] [address] [place] [address] documented as of this encounter Visit Diagnoses Not on filedocumented in this encounter Care Teams Continuity Person Relationship Specialty Start Date End Date Toby Zhong MD [address] [place] [phone] PCP - General 09/20/13 Rajani Thompson MD [address] [place] [address] Dermatology 09/27/21 documented as of this encounter
--- OUTSIDE RECORDS SUMMARY | 2024-11-08 13:01 | XMS_ITS | Clinical Summary ---
Author Organization [facility] [address] [facility] Address [address] [place] [address] Care Team Providers Care Technical Services Consultant Name Role Phone Toby Zhong MD Primary Care Provider [phone]- [phone] Allergies Active Allergy Reactions Criticality Noted Date [...] from the original. Dr. Khan- Vascular Surgery [phone] Problem Noted Date Diagnosed Date Status post [...] Comments Blood Pressure 142/67 01/29/2023 11:01 AM SWITCH FOREMAN Pulse 94 01/29/2023 11:01 AM SWITCH FOREMAN Temperature 36.5 C (97.7 F) 02/19/2021 9:26 AM SWITCH FOREMAN Respiratory Rate - - Oxygen Saturation 94% 01/29/2023 11:01 AM SWITCH FOREMAN Inhaled Oxygen Concentration - - Weight 129.3 kg (285 lb) 01/29/2023 11:01 AM SWITCH FOREMAN Height 180.3 cm (5' 11) 01/29/2023 11:01 AM SWITCH FOREMAN Body Mass Index 39.75 01/29/2023 11:01 AM SWITCH FOREMAN Plan of Treatment Health Maintenance Due Date Last Done Comments DTAP/TDAP/TD VACCINES (1 - Tdap) 1970 COLORECTAL SCREENING 02/18/1996 Colorectal Cancer Screening 02/18/1996 FIT-DNA Q 3 years 02/18/1996 FIT/FOBT Q 1 year 02/18/1996 Flex Sig/CT Colonography Q 5 years 02/18/1996 ZOSTER VACCINE (1 of 2) 2001 PNEUMOCOCCAL VACCINE 50+ YEA RS (2 of 2 - PCV) 01/20/2014 01/20/2013, 10/28/2011, 09/22/2010 INFLUENZA VACCINE (#1) 2024 03/02/2020, 2018 RSV VACCINE (60+ or ) (1 - 1-dose 75+ series) 2026 Insurance MEDICARE PART A AND B [facility] Care Teams Technical Services Consultant Relationship Specialty Start Date End Date Toby Zhong MD PCP - General Family Practice 01/19/18
[2024-11-08 13:15] LABS: Hematocrit 49.3 % (42.0-52.0); Hemoglobin 16.1 g/dL (14.0-18.0); Immature Granulocyte Percent A 0.5 % (0-0.5); Lymphocytes Absolute Auto 1.79 K/mm3 (0.9-3.2); Mean Corpuscular HGB Conc 32.7 g/dl (32-36); Mean Corpuscular Hemoglobin 29.9 pg (26-34); Mean Corpuscular Volume 91.5 fl (80-100); Nucleated Red Blood Cells Absolute Auto 0.000 K/mm3 (0.0-0.012); Nucleated Red Blood Cells Perc 0.0 % (0.0-0.2); Platelet Count Result 187 k/mm3 (150-375); Red Blood Count 5.39 M/mm3 (4.6-6.20); White Blood Count 7.5 K/mm3 (4.5-10.0)
[2024-11-08 13:29] LABS: Alanine Aminotransferase 25 U/L (6-50); Albumin Level 4.0 g/dL (3.5-5.1); Alkaline Phosphatase 84 U/L (38-126); Anion Gap 9 mmol/L (4-12); Aspartate Amino Transferase 69 U/L (17-59); Bilirubin,Total 0.5 mg/dL (0.2-1.3); Blood Urea Nitrogen 19 mg/dL (9-20); Calcium 9.1 mg/dL (8.4-10.2); Carbon Dioxide 26 mmol/L (22-30); Chloride 104 mmol/L (98-107); Cholesterol 120 mg/dL (0-200); Estimated Glomerular Filt Rate > 60; Glucose 90 mg/dL (65-110); HDL Direct 44 mg/dL; Potassium 4.3 mmol/L (3.4-5.0); Sodium 139 mmol/L (137-145); Total Protein 7.6 g/dL (6.3-8.2); Triglycerides 104 mg/dL (<150)
[2024-11-08 13:59] LABS: Thyroid Stimulating Hormone Reflex 3.000 uIU/mL (0.465-4.68)
[2024-11-08 22:29] LABS: Hemoglobin A1C 5.6 % (<5.7)
== END 2024-11-08 11:52 | disposition home or self-care (01) ==
LOC: ANHGOSHLAB 11:52
PROVIDERS: PCP Family Medicine; Visit Provider Family Medicine
DX: E78.5 Hyperlipidemia, unspecified (principal)
CPT/HCPCS: 36415; 80053; 80061; 83036; 84443; 85025